=== PATIENT | female | born 1965 | race Caucasian/White ===

== ENCOUNTER 2020-06-18 19:36 | Observation (INO) | payer SELFPAY ==
[~2020-06-18] VITALS: Ht 162.6 cm; Wt 114.0 kg
[2020-06-18 20:07] LABS: BASOPHILS ABSOLUTE AUTO 0.05 K/mm3 (0.00-0.23); BASOPHILS PERCENT AUTO 1 % (0-2); EOSINOPHILS ABSOLUTE AUTO 0.11 K/mm3 (0.00-0.68); EOSINOPHILS PERCENT AUTO 1 % (0-6); Hematocrit 41.4 % (33.0-51.0); Hemoglobin 13.2 g/dL (11.5-16.0); IMMATURE GRAN ABSOLUTE AUTO 0.01 K/mm3 (0.00-0.10); IMMATURE GRAN PERCENT AUTO 0 % (0-1); LYMPHOCYTES PERCENT AUTO 41 % (21-46); MONOCYTES PERCENT AUTO 6 % (4-13); Mean Corpuscular HGB 28.6 pg (26.0-34.0); Mean Corpuscular HGB Conc 31.9 g/dL (31.5-36.5); Mean Corpuscular Volume 90 fL (80-100); Mean Platelet Volume 11.7 fL (9.1-12.4); NEUTROPHILS ABSOLUTE AUTO 4.18 K/mm3 (1.96-9.15); NEUTROPHILS PERCENT AUTO 51 % (41-73); Platelet Count 266 K/mm3 (150-400); RDW Coefficient Variation 13.6 % (11.7-14.2); RDW Standard Deviation 44.8 fL (35.1-46.3); Red Blood Cell Count 4.62 M/mm3 (3.80-5.20); White Blood Cell Count 8.25 K/mm3 (4.00-11.30)
[2020-06-18 20:26] LABS: Alanine Aminotransfer (ALT/SGP 29 U/L (12-78); Albumin, Blood 3.9 g/dL (3.4-5.0); Alk Phos 105 U/L (50-136); Anion Gap 6 mmol/L (6-16); Aspartate Aminotrans (AST/SGOT 22 U/L (12-37); Bilirubin, Total 0.4 mg/dL (0.1-1.0); Blood Urea Nitrogen 13 mg/dL (8-24); CO2, Blood 25 mmol/L (21-32); Calcium, Blood 9.4 mg/dL (8.5-10.1); Chloride, Blood 108 mmol/L (98-108); Creatinine, Blood 0.72 mg/dL (0.40-1.00); Globulin, Blood 3.8 g/dL (2.2-4.0); Glomerular Filtration Rate >60 (60-); Glucose, Blood 101 mg/dL (70-99); Potassium, Blood 3.8 mmol/L (3.5-5.5); Sodium, Blood 139 mmol/L (136-145); Total Protein, Blood 7.7 g/dL (6.4-8.2)
[2020-06-18] MEDS ORDERED: BENADRYL25 MG PO (23:41)
[2020-06-18] MEDS ORDERED: Acetaminophen650 M1 PO (23:41)
[2020-06-18] MEDS ORDERED: OMEP20ER PO (23:41)
[2020-06-18] MEDS ORDERED: PSEU120ER PO (23:42)
[2020-06-18] MEDS ORDERED: IBU600 M1 PO (23:44)
[2020-06-19 00:33] LABS: Source, Urine Clean Catch
[2020-06-19 00:40] LABS: Appearance, Urine Clear (Clear); Bilirubin, Urine Neg (Neg); Blood, Urine Neg (Neg); Color, Urine Yellow (P-Yellow); Glucose Qualitative, Urine Neg (Neg); Ketones, Urine Neg (Neg); Leukocyte Esterase, Urine 1+ (Neg); Nitrite, Urine Neg (Neg); Protein, Urine Neg (Neg); Urobilinogen, Urine NORM (Normal)
[2020-06-19 01:22] LABS: Bacteria Few /hpf; Red Blood Cells, Urine Not Seen /hpf (0-2); Squamous Epithelial Cells Rare /hpf (Few); White Blood Cells, Urine 0-2 /hpf (0-5)
[2020-06-19 06:21] LABS: BASOPHILS ABSOLUTE AUTO 0.05 K/mm3 (0.00-0.23); BASOPHILS PERCENT AUTO 1 % (0-2); EOSINOPHILS ABSOLUTE AUTO 0.11 K/mm3 (0.00-0.68); EOSINOPHILS PERCENT AUTO 2 % (0-6); Hematocrit 40.2 % (33.0-51.0); Hemoglobin 12.6 g/dL (11.5-16.0); IMMATURE GRAN ABSOLUTE AUTO 0.01 K/mm3 (0.00-0.10); IMMATURE GRAN PERCENT AUTO 0 % (0-1); LYMPHOCYTES ABSOLUTE AUTO 2.23 K/mm3 (0.84-5.20); LYMPHOCYTES PERCENT AUTO 33 % (21-46); MONOCYTES ABSOLUTE AUTO 0.44 K/mm3 (0.16-1.47); MONOCYTES PERCENT AUTO 7 % (4-13); Mean Corpuscular HGB 28.3 pg (26.0-34.0); Mean Corpuscular HGB Conc 31.3 g/dL (31.5-36.5); Mean Corpuscular Volume 90 fL (80-100); Mean Platelet Volume 12.2 fL (9.1-12.4); NEUTROPHILS ABSOLUTE AUTO 3.96 K/mm3 (1.96-9.15); NEUTROPHILS PERCENT AUTO 58 % (41-73); Platelet Count 233 K/mm3 (150-400); RDW Coefficient Variation 13.7 % (11.7-14.2); RDW Standard Deviation 45.6 fL (35.1-46.3); Red Blood Cell Count 4.45 M/mm3 (3.80-5.20)
--- NOTE | 2020-06-19 06:37 | NUR ---
SHIFT SUMMARY PT ARRIVED TO UNIT FROM ED VIA STRETCHER @ 3159. PT TRANSFERRED FROM STRETCHER TO STANDING SCALE SBA WITH CANE. THEN FROM SCALE TO BED. A&O X4. CALLS APPRPOPRIATELY. GAIT IS STEADY. MEDICATED X1 FOR COMPLAINTS OF BODY ACHES. NO ACUTE CHANGES THIS SHIFT. NO OTHER COMPLAINT. WILL CONTINUE TO MONITOR UNTIL REPORT GIVEN TO DAY RN.
[2020-06-19 06:43] LABS: Anion Gap 6 mmol/L (6-16); Blood Urea Nitrogen 15 mg/dL (8-24); Bun/Creatinine Ratio 21.3 (12.0-20.0); CHOL/HDL RATIO 3.4; CO2, Blood 24 mmol/L (21-32); Calcium, Blood 9.2 mg/dL (8.5-10.1); Chloride, Blood 110 mmol/L (98-108); Cholesterol 155 mg/dL (50-200); Glomerular Filtration Rate >60 (60-); Glucose, Blood 105 mg/dL (70-99); HDL Cholesterol 46 mg/dL (>39); LDL/HDL RATIO 1.7; Low Density Lipoprotein Chol 78 mg/dL (0-110); Potassium, Blood 3.8 mmol/L (3.5-5.5); Sodium, Blood 140 mmol/L (136-145); Thyroid Stimulating Hormone 0.876 uIU/mL (0.360-4.800); Triglycerides 155 mg/dL (30-160); Very Low Density Lipoprot Chol 31 mg/dL (6-32)
--- NOTE | 2020-06-19 11:48 | NUR ---
Echocardiogram using 9.0ml of agitated saline contrast performed.
--- NOTE | 2020-06-19 12:46 | NUR ---
AND HIS RESIDENT CANDI ROUNDED. LOOKING AT OTHER ALTERNATIVES TO A STROKE. SOME ORDERS RECEIVED.
--- NOTE | 2020-06-19 15:36 | NUR ---
SHE TOOK A NAP. CAROTID US DONE. TELE DC'D. NOW SIPPING ON SOME HERBAL TEA.
--- NOTE | 2020-06-19 17:26 | NUR ---
SHE HAS HAD SEVERAL TESTS TODAY. CTA HEAD AND NECK, ECHO, AND CAROTID US ALL DONE. IS THINKING MAYBE MS, NOT A STROKE. EXTRA LABS DONE AND PT EVAL ALSO DONE. SHE IS INDEPENDENTLY AMBULATORY IN THE ROOM WITH HER CANE. SHE WALKED THE STRATTON WITH GAITBELT, CANE AND SBA. HER L ARM AND LEG ARE WEAK. SHE HAS N/T IN THE LH AND L LEG AND FOOT. SHE HAD A H/A EARLIER TODAY AND PAIN ACROSS HER SHOULDERS AND BASE OF NECK. TYLENOL, KPAD AND A NAP HELPED. SHE HAS BEEN ON HER PHONE A LOT TODAY WITH FAMILY AND FRIENDS. SHE ALSO SPOKE WITH THE AUTO PARTS COUNTER PERSON ABOUT FUTURE NEEDS. NO NEURO CHANGES THIS SHIFT.
--- NOTE | 2020-06-20 05:21 | NUR ---
SHIFT SUMMARY PT HAS RESTED MOST OF THE NIGHT. PT COMPLAINS OF BACK AND NECK PAIN, SHE FINDS RELIEF WITH A HEATING PAD. MEDICATED WITH TYLENOL PRN. PT HAS BEEN INDEPENDENT IN THE ROOM. VITALS ARE STABLE, NO ACUTE CHANGES IN ASSESSMENT. BED IN LOWEST POSITION, CALL LIGHT WITHIN REACH.
--- NOTE | 2020-06-20 07:41 | NUR ---
pt neuro check h/a neck pain pos pt has equal pooling operator and dorsal plantar flex pt puerla pt stated she did not sleep well last night also asking for her asthama meds stated she has some chest tightness
--- NOTE | 2020-06-20 09:20 | NUR ---
pt working with physical therapy
--- NOTE | 2020-06-20 10:30 | NUR ---
pt resting req the door closed
--- NOTE | 2020-06-20 11:17 | NUR ---
DR SHEIKH BY TO SEE PT
[2020-06-20] MEDS ORDERED: ATOR80 PO (12:28)
[2020-06-20] MEDS ORDERED: ASPIR 8181 M1 PO (12:28)
[2020-06-20] MEDS ORDERED: LOSARTAN POTASS25 M1 PO (12:29)
[2020-06-20] MEDS ORDERED: Nicoderm Cq1 EAC1 TOP (12:30)
--- NOTE | 2020-06-20 12:50 | NUR ---
DISCHARGE INSTRUCTIONS REVIEWED WITH PT VERBALIZED RX FAXED TO [facility] PT'S FAMILY PICKING HER UP NO ACUTE CHANGES PT TO HAVE WC ESCORT TO CAR WHEN ARRIVES
== END 2020-06-20 12:53 | disposition home or self-care (01) ==
LOC: ER 19:36 → MEDS 19:37 → ENPENDDIS 06-20 12:27 → MEDS 06-20 12:53
PROVIDERS: Physician Assistant; Student in an Organized Health Care Education/Training Program; ADMIT Internal Medicine
DX: G43.019 Migraine without aura, intractable, without status migrainosus (principal); G35 Multiple sclerosis; K21.9 Gastro-esophageal reflux disease without esophagitis; F17.210 Nicotine dependence, cigarettes, uncomplicated; I10 Essential (primary) hypertension; I25.10 Atherosclerotic heart disease of native coronary artery without angina pectoris; I25.2 Old myocardial infarction; Z86.73 Personal history of transient ischemic attack (TIA), and cerebral infarction without residual deficits; Z88.0 Allergy status to penicillin; Z88.5 Allergy status to narcotic agent; Z88.8 Allergy status to other drugs, medicaments and biological substances; Z88.1 Allergy status to other antibiotic agents; Z95.5 Presence of coronary angioplasty implant and graft; Z79.899 Other long term (current) drug therapy
CPT/HCPCS: 36415; 70450; 70496; 70498; 80048; 80053; 80061; 81001; 83036; 84443; 85025; 85651; 86140; 87086; 87147; 93005; 93010; 93306; 93880; 96372; 97116; 97161; 99285-25; A9270; A9270-GY; C9113; G0378; J1650; Q9967

== ENCOUNTER → 2020-07-30 | Outpatient (CLI) | payer OTHER ==
[~2020-07-30] MED LIST: ASPIR 8181 M1 PO; ATOR80 PO; Acetaminophen650 M1 PO; BENADRYL25 MG PO; IBU600 M1 PO; LOSARTAN POTASS25 M1 PO; Nicoderm Cq1 EAC1 TOP; OMEP20ER PO; PSEU120ER PO
[2020-08-01 16:01] LABS: CORNONAVIRUS (COVID19) CSH-NRL Negative (Negative)
== END | disposition home or self-care (01) ==
LOC: LAB SHORT 16:25
PROVIDERS: Physician Assistant
DX: R05 Cough (principal); Z20.828 Contact with and (suspected) exposure to other viral communicable diseases
CPT/HCPCS: U0003

== ENCOUNTER 2020-11-13 10:32 | Inpatient (IN) | payer OTHER ==
[~2020-11-13] VITALS: Ht 165.1 cm; Wt 99.3 kg
[~2020-11-13 10:32] MED LIST changes: +ATOR40TA PO; -ATOR80 PO
[2020-11-13 11:14] LABS: BASOPHILS ABSOLUTE AUTO 0.02 K/mm3 (0.00-0.23); BASOPHILS PERCENT AUTO 0 % (0-2); EOSINOPHILS ABSOLUTE AUTO 0.01 K/mm3 (0.00-0.68); EOSINOPHILS PERCENT AUTO 0 % (0-6); Hematocrit 41.1 % (33.0-51.0); Hemoglobin 13.4 g/dL (11.5-16.0); IMMATURE GRAN ABSOLUTE AUTO 0.04 K/mm3 (0.00-0.10); IMMATURE GRAN PERCENT AUTO 0 % (0-1); LYMPHOCYTES ABSOLUTE AUTO 0.95 K/mm3 (0.84-5.20); LYMPHOCYTES PERCENT AUTO 11 % (21-46); MONOCYTES ABSOLUTE AUTO 0.29 K/mm3 (0.16-1.47); MONOCYTES PERCENT AUTO 3 % (4-13); Mean Corpuscular HGB 29.9 pg (26.0-34.0); Mean Corpuscular HGB Conc 32.6 g/dL (31.5-36.5); Mean Corpuscular Volume 92 fL (80-100); Mean Platelet Volume 11.3 fL (9.1-12.4); NEUTROPHILS PERCENT AUTO 85 % (41-73); Platelet Count 205 K/mm3 (150-400); RDW Coefficient Variation 13.2 % (11.7-14.2); RDW Standard Deviation 45.1 fL (35.1-46.3); Red Blood Cell Count 4.48 M/mm3 (3.80-5.20); White Blood Cell Count 8.91 K/mm3 (4.00-11.30)
[2020-11-13 11:15] LABS: PCO2 Arterial 37.7 mmHg (35-45); PO2 Arterial 63.6 mmHg (80-100); pH Blood Arterial 7.42 (7.35-7.45)
[2020-11-13 11:32] LABS: Alanine Aminotransfer (ALT/SGP 26 U/L (12-78); Albumin, Blood 3.6 g/dL (3.4-5.0); Albumin/Globulin Ratio 0.9 (0.8-1.8); Alk Phos 98 U/L (50-136); Anion Gap 5 mmol/L (6-16); Aspartate Aminotrans (AST/SGOT 19 U/L (12-37); Bilirubin, Total 0.4 mg/dL (0.1-1.0); Blood Urea Nitrogen 7 mg/dL (8-24); Bun/Creatinine Ratio 12.4 (12.0-20.0); CO2, Blood 25 mmol/L (21-32); Calcium, Blood 8.5 mg/dL (8.5-10.1); Chloride, Blood 103 mmol/L (98-108); Creatinine, Blood 0.56 mg/dL (0.40-1.00); Ethanol (Alcohol), Blood, Med <3 mg/dL; Free Thyroxine 1.22 ng/dL (0.70-1.60); Globulin, Blood 3.8 g/dL (2.2-4.0); Glomerular Filtration Rate >60 (60-); Glucose, Blood 112 mg/dL (70-99); Potassium, Blood 3.5 mmol/L (3.5-5.5); Sodium, Blood 133 mmol/L (136-145); Total Protein, Blood 7.4 g/dL (6.4-8.2)
[2020-11-13 11:35] LABS: Acetaminophen, Random <2.0 ug/mL (10.0-30.0)
[2020-11-13 11:44] LABS: U Amphetamine Screen Not Detected; U Barbituate Screen Not Detected; U Benzodiazapine Screen DETECTED; U Buprenorphine Screen Not Detected; U Cannabinoids Screen DETECTED; U Cocaine Screen Not Detected; U Methadone Screen Not Detected; U Methamphetamine Screen Not Detected; U Opiates Screen Not Detected; U Oxycodone Screen Not Detected; U Phencyclidine Screen Not Detected; U Propoxyphene Screen Not Detected
[2020-11-13] MEDS ORDERED: BENZONATATE100 MG PO (12:42)
[2020-11-13] MEDS ORDERED: CYCL10 PO (12:43)
[2020-11-13 14:57] LABS: Influenza A, PCR NEGATIVE (NEGATIVE); Influenza B, PCR NEGATIVE (NEGATIVE); Resp Syncytial Virus, PCR NEGATIVE (NEGATIVE); SARS-Cov-2 (COVID-19) PCR, MMC NEGATIVE (NEGATIVE)
--- NOTE | 2020-11-13 17:00 | NUR ---
ASSUMED CARE/ADMISSION PT ARRIVED TO ICU 02 VIA STRETCHER AT 1645 WITH A 1:1 SITTER. PT SLEEPY, LETHARGIC, SOMNOLENT - AROUSING TO VERBAL STIMULI BUT NOT MAINTAINING HER ATTENTION SPAN FOR TOO LONG. ORIENTED TO SELF, SURROUNDINGS, YEAR, AND FAMILY - FOLLOWING SOME DIRECTIONS, BUT MAKING FEW CONFUSING STATEMENTS BEFORE FALLING ASLEEP. SHE WILL FALL ASLEEP MID SENTENCE, OR WHILE YOU ARE ASKING HER A QUESTION. UNABLE TO DETERMINE CURRENT SUICIDE IDEATIONS, PT REMAINS ON HIGH RISK. ROOM WAS MITIGATED AT 1615 BY THIS RN. UPON ARRIVAL TO UNIT, SHE IS ON ROOM AIR, STABLE VITALS (MAP > 65, SPO2 > 94%, HR 60-70s, 106/64). BED LOW AND LOCKED.
--- NOTE | 2020-11-13 17:22 | NUR ---
SUICIDE ASSESSMENT PT IS VERY SOMNOLENT, AND IS HAVING DIFFICULTY STAYING AWAKE AND TALKING. WHEN TALKING FOR BRIEF PERIODS OF TIME SHE WILL TRAIL OFF MID SENTENCE AND FALL ASLEEP, AND OFTEN WILL JUST MUMBLE INCOMPREHENSIBLY. SHE WAS ABLE TO TELL ME THAT SHE IS AT [facility], THE YEAR, AND HER NAME - BUT WAS UNABLE TO GET ANY MORE INFORMATION FROM HER. PT CURRENTLY FAST ASLEEP. WILL CONTINUE TO MONITOR. PT HAS A 1:1 SITTER PRESENT.
--- NOTE | 2020-11-13 18:08 | NUR ---
FACE SHEET TUBED DOWN TO THE ER FOR SHIRA CONSULT.
--- NOTE | 2020-11-13 19:35 | NUR ---
ASSUMED CARE RECEIVED BEDSIDE REPORT FROM ANNIE HARRIS; PT SLEEPING IN BED, LETHARGIC; VSS; O2 SATS >93 ON RA; GILMORE IN PLACE, PATENT & DRAINING; 1:1 SITTER AND CAMERA ON FOR SAFETY; NO DISTRESS NOTED; CALL LIGHT IN REACH; BED IN LOWEST POSITION
--- NOTE | 2020-11-13 20:30 | NUR ---
UPDATE PT ARROUSED TO VERBAL; ABLE TO STATE SHE IS IN THE HOSPITAL AND FOLLOWING SOME DIRECTIONS; ROLLED SIDE TO SIDE, SQUEEZED HANDS, STRAIGHTENED LEGS AND FOLLOWED PEN LIGHT MINIMALLY; WOULD NOT ANSWER SI QUESTIONS; FALLS ASLEEP QUICKLY IN BETWEEN QUESTIONS; 1:1 SITTER; CALL LIGHT IN REACH; BED IN LOWEST POSITION
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
--- NOTE | 2020-11-13 22:46 | NUR ---
UPDATE SPOKE W/ MARINA W/ POISON CONTROL; GAVE RECOMMENDATIONS FOR MONITORING MAG AND POTASSIUM; NOTIFIED RYLIE CHRIS; NEW ORDERS GIVEN, REFER TO EMAR.
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
[2020-11-14 03:38] LABS: BASOPHILS ABSOLUTE AUTO 0.02 K/mm3 (0.00-0.23); BASOPHILS PERCENT AUTO 0 % (0-2); EOSINOPHILS ABSOLUTE AUTO 0.05 K/mm3 (0.00-0.68); EOSINOPHILS PERCENT AUTO 1 % (0-6); Hemoglobin 12.5 g/dL (11.5-16.0); IMMATURE GRAN ABSOLUTE AUTO 0.02 K/mm3 (0.00-0.10); IMMATURE GRAN PERCENT AUTO 0 % (0-1); LYMPHOCYTES ABSOLUTE AUTO 1.91 K/mm3 (0.84-5.20); LYMPHOCYTES PERCENT AUTO 21 % (21-46); MONOCYTES ABSOLUTE AUTO 0.52 K/mm3 (0.16-1.47); MONOCYTES PERCENT AUTO 6 % (4-13); Mean Corpuscular HGB Conc 32.9 g/dL (31.5-36.5); Mean Corpuscular Volume 91 fL (80-100); Mean Platelet Volume 11.2 fL (9.1-12.4); NEUTROPHILS ABSOLUTE AUTO 6.51 K/mm3 (1.96-9.15); NEUTROPHILS PERCENT AUTO 72 % (41-73); Platelet Count 198 K/mm3 (150-400); RDW Coefficient Variation 13.2 % (11.7-14.2); RDW Standard Deviation 44.8 fL (35.1-46.3); Red Blood Cell Count 4.17 M/mm3 (3.80-5.20); White Blood Cell Count 9.03 K/mm3 (4.00-11.30)
[2020-11-14 03:54] LABS: Alanine Aminotransfer (ALT/SGP 23 U/L (12-78); Albumin, Blood 3.1 g/dL (3.4-5.0); Alk Phos 85 U/L (50-136); Anion Gap 2 mmol/L (6-16); Aspartate Aminotrans (AST/SGOT 27 U/L (12-37); Bilirubin, Total 0.3 mg/dL (0.1-1.0); Blood Urea Nitrogen 8 mg/dL (8-24); Bun/Creatinine Ratio 13.2 (12.0-20.0); CO2, Blood 26 mmol/L (21-32); Calcium, Blood 8.7 mg/dL (8.5-10.1); Chloride, Blood 113 mmol/L (98-108); Globulin, Blood 3.2 g/dL (2.2-4.0); Glomerular Filtration Rate >60 (60-); Glucose, Blood 79 mg/dL (70-99); Magnesium, Blood 2.2 mg/dL (1.6-2.4); Potassium, Blood 4.3 mmol/L (3.5-5.5); Sodium, Blood 141 mmol/L (136-145); Total Protein, Blood 6.3 g/dL (6.4-8.2)
--- NOTE | 2020-11-14 04:54 | NUR ---
UPDATE NOTIFIED OF CONSULT W/ POISON CONTROL AND REPEAT EKG, QTC 489; NO NEW ORDERS GIVEN
--- NOTE | 2020-11-14 06:19 | NUR ---
SHIFT SUMMARY PT A&O X 3-4; BECOMES FRUSTRATED W/ BEING IN HOSPTIAL AT TIMES; STATES SHE WISHED NO ONE WOULD HAVE FOUND HER, "I KNEW I SHOULDN'T HAVE DONE IT ON THEIR PROPERTY" WHEN SPEAKING OF SI ATTEMPT ON HER MOTHER'S PROPERTY; VSS; DENIES CHEST PAIN; NSR NOTED ON MONITOR; O2 SATS >93 ON RA W/ RR 16-19; GILMORE PATENT & DRAINING YELLOW; NS GTT @ 75 ML/HR TO R HAND IV; 1:1 SITTER AND CAMERA ON FOR DURATION OF SHIFT; SEIZURE PADS IN PLACE; SPOKE W/ POISON CONTROL 2X; PT CURRENTLY SLEEPING; NO DISTRESS NOTED; CALL LIGHT IN REACH; BED IN LOWEST POSITION; WILL CONTINUE TO MONITOR CLOSELY UNTIL HAND OFF TO DAY SHIFT RN.
--- NOTE | 2020-11-14 07:15 | NUR ---
PT RECEIVED FROM ANNIE VALIENTE. STEVE IS AWAKE AND ANSWERING QUESTIONS, HAS A 1:1 SITTER OBSERVING. VITALS ARE STABLE, SHE IS ASKING FOR WATER. COUGH, NOT NEW, OCC.PRODUCTIVE,LUNGS WITH EXP.WHEEZE,ABDOMEN SOFT,TENDER TO PALPATION,GILMORE DRAINING YELLOW,BRUISES OVER LOWER EXTREMITIES, PATIENT STATES SHE FELL ON THE STEPS AT HOME. PT BEGINS CRYING,AGITATED,SAYING WHY DID "YOU" SAVE ME? I DON'T WANT TO BE HERE! SOBS,WAILS, CAN CALM WITH TALKING.
--- NOTE | 2020-11-14 07:30 | NUR ---
PT DEMANDING TO STAND AT THE BEDSIDE, ANGRY,AGITATED. TRYING TO CALM HER WITH CONVERSATION. STANDS AT BEDSIDE, SHE DOES SOME STRETCHES. CALMS DOWN AND RETURNS TO BED.
--- NOTE | 2020-11-14 08:00 | NUR ---
AND IN TO SEE PATIENT, SHE IS ANGRY AND AGITATED AT THIS TIME, ANSWERING FRUSTRATEDLY TO . CALMS WITH CONVERSATION AFTER THEY HAVE GONE. HAS RATIONAL CONVERSATION. IV CONTINUES INFUSING AT 75ML/HR IN RIGHT THUMB IV, RIGHT FOOT WITH SALINE LOCK. GILMORE CONT.DRAINING TO GRAVITY. SITTER PRESENT.
--- NOTE | 2020-11-14 09:00 | NUR ---
RESTING,APPEARS TO BE SLEEPING.
--- NOTE | 2020-11-14 10:30 | NUR ---
COUNSELOR FROM MENTAL HEALTH HERE TO TALK WITH PATIENT. PATIENT VISITING WITH HER THEN BEGINS SHOUTING OUT THAT HER ARM IS HURTING, TAKE OUT THE IV, TAKE OUT THE IV. IV STOPPED, ARM ASSESSED, NO REDNESS,SWELLING,OR DRAINAGE. IV PUT TO FOOT SALINE LOCK. PT BEGINS SCREAMING, STOP THE POTASSIUM! STOP THE POTASSIUM! I AGAIN STOPPED THE IV AND ASSESSED THE AREA, NO REDNESS,SWELLING OR DRAINAGE. IV DISCONNECTED. PT ASKING FOR GILMORE OUT WELL. CALL TO WHO WAS AT THE TIME PUTTING IN ORDERS TO DC THE GILMORE AND THE FLUIDS.
--- NOTE | 2020-11-14 11:00 | NUR ---
PT'S RIGHT THUMB IV REMOVED AND THE GILMORE CATHETER REMOVED. PATIENT EXPRESSES THANKFULNESS AND APPRECIATION. SHE STATES THAT SHE REALLY DOESN'T WANT TO , SHE IS JUST FED UP WITH THE TREATMENT HER MOTHER GIVES HER.
--- NOTE | 2020-11-14 16:40 | NUR ---
PT ARRIVED TO ROOM BY W/C FROM ICU. SETTLED IN TO ROOM AND ORIENTED TO SPACE [employer]LL POLICIES REGARDING SUICIDE RISK PRERCAUTIONS TAKEN. ORIENTED AND APPROPRIATE ON ARRIVAL.
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
--- NOTE | 2020-11-14 22:14 | NUR ---
PT. DENIES SI AT THIS TIME. STATES CONCERN THAT SHE HAS NO WHERE TO GO AND MOM ASKED HER TO LEAVE PARENTS PROPERTY. PT. REMAINS ON MODERATE SI. RESTING QUIETLY IN BED, NO APPARENT DISTRESS NOTED. ON CAMERA, WILL CONT TO MONITOR.
[2020-11-15] MEDS ORDERED: NAPR500 PO (03:04)
[2020-11-15] MEDS ORDERED: ALBU90OI INH (03:05)
--- NOTE | 2020-11-15 06:00 | NUR ---
SHIFT SUMMARY- PT. A&O, INDEPENDENT IN THE ROOM. DENIED SI THIS SHIFT. STATED DID NOT WANT TO COMMIT SUICIDE ANYMORE, BUT CONCERNED AND TEARFUL ABOUT FINDING A PLACE TO LIVE. PT. SLEPT FOR A FEW HRS DURING THE NIGHT AND THEN AWAKE THE REST OF THE SHIFT. REQUESTING LOTS TO DRINK; HAD WATER, COFFEE, AND TEA SEVERAL TIMES. C/O BACK AND HIP PAIN. MEDICATED WITH TYLENOL PER EMAR, PT. REPORTED NO RELIEF. STATED TAKES 4 500MG OF TYLENOL AT HOME AND EVEN THAT DOES NOT PROVIDE GOOD RELIEF. THIS AM PT. REPORTED CHEST PRESSURE THAT COMES AND GOES WHICH FELT LIKE REFLUX. PT. W/HX OF GERD AND MS, VSS. NOTIFIED HOSPITALIST DR. PRUITT, INSTRUCTED TO MEDICATE WITH TUMS AND INFORM PHYSICIAN IF NO IMPROVEMENT. PT. MEDICATED PER ORDER, INSTRUCTED TO NOTIFY THIS NURSE IF NO IMPROVEMENT OR SX'S WORSEN. PT. VERBALIZED UNDERSTANDING. PT. RESTING IN BED QUIETLY AT THIS TIME, NO APPARENT DISTRESS NOTED. CALL LIGHT WITHIN REACH, SIDE RAILS UPX2, AND ON CAMERA. WILL CONT TO MONITOR.
--- NOTE | 2020-11-15 08:31 | NUR ---
DR. TILLEYUF AWARE OF CURRENT SI RISK. JUST SPOKE WITH DR. CABRERA AND WAS HEARD STATING SHE MAY KILL HER MOTHER IF SHE IS NEARBY AGAIN.
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
--- NOTE | 2020-11-15 18:29 | NUR ---
SHIFT SUMMARY PT WAS ON MOD SI UNTIL SEEN BY DR. SILVA AND NO LONGER SI. HAS BEEN REPORTING CONSTIPATION SINCE THIS MORNING. PRUNE JUICE GIVEN AND PT REPORTED STOMACH CRAMPING MOST OF SHIFT AND THEN ASKED FOR AN ENEMA. GIVEN AND PT REPORTED LARGE BM WITHIN 15 MINUTES OF RECEIVING. NO OTHER CHANGE TODAY.
--- NOTE | 2020-11-16 05:53 | NUR ---
SHIFT SUMMARY- SI DISCONTINUED. PT. A&O, INDPENDENT IN ROOM ALSO AMBULATING IN HALLWAY. TOLERATING WELL. C/O BACK AND HIP PAIN THIS SHIFT, MEDICATED PER EMAR. APPEARED TO HAVE GOOD EFFECT, RESTED QUIETLY T/O THE NIGHT. NO APPARENT DISTRESS NOTED. VSS. CALL LIGHT WITHIN REACH. WILL CONT TO MONITOR.
[2020-11-16] MEDS ORDERED: BUSP10 PO (11:07)
--- NOTE | 2020-11-16 11:38 | NUR ---
DISCHARGE NOTE PT IS AOX4. PT IV REMOVED FROM FOOT BY THIS RN. THIS RN REVIEWED PT MEDICATIONS AND DC INSTRUCTION WITH PT WHO VERBALIZED AN UNDERSTANDING. THIS RN RETRIEVED PT MEDICATIONS FROM PHARMACY AND PT PLACED MEDICATIONS IN HER BELONGINGS BAG. PT DRESSED SELF IN HOME CLOTHING. PT BELONGINGS GATHERED AND PRESENT WITH PT UPON DC. THIS RN WALKED PT TO ER ENTRANCE WHERE PT ENTERED TAXI RIDE AT APPROXIMATELY 1135 FOR DC.
== END 2020-11-16 11:25 | disposition home or self-care (01) | DRG 917 ==
LOC: ER 10:32 → ERHOLD 13:17 → ICUE 13:17 → MEDS 11-14 16:31 → ENPENDDIS 11-16 10:05 → MEDS 11-16 11:25
PROVIDERS: Emergency Medicine; Nurse Practitioner Acute Care; ADMIT Hospitalist
DX: T48.1X2A Poisoning by skeletal muscle relaxants [neuromuscular blocking agents], intentional self-harm, initial encounter (principal); G92 Toxic encephalopathy; Y92.9 Unspecified place or not applicable; Z79.82 Long term (current) use of aspirin; I25.2 Old myocardial infarction; K21.9 Gastro-esophageal reflux disease without esophagitis; F17.210 Nicotine dependence, cigarettes, uncomplicated; F20.9 Schizophrenia, unspecified; F32.9 Major depressive disorder, single episode, unspecified; I10 Essential (primary) hypertension; I25.10 Atherosclerotic heart disease of native coronary artery without angina pectoris; T46.5X2A Poisoning by other antihypertensive drugs, intentional self-harm, initial encounter; G89.29 Other chronic pain; M54.9 Dorsalgia, unspecified; M25.559 Pain in unspecified hip
CPT/HCPCS: 0241U; 36415; 36600; 51702; 70450; 71045; 80053; 81025; 82550; 82803; 83735; 84439; 84443; 85025; 93005; 93010; 94640; 97161; 99285-25; A9270; G0480; J1650; J3480; J7030

== ENCOUNTER 2021-02-26 15:40 | Observation (INO) | payer OTHER ==
[~2021-02-26] VITALS: Ht 160 cm; Wt 83.9 kg
[~2021-02-26 15:40] MED LIST changes: +ALBU90OI INH; +BENZONATATE100 MG PO; +BUSP10 PO; +CYCL10 PO; +NAPR500 PO
[2021-02-26 17:10] LABS: Source, Urine Clean Catch
[2021-02-26 17:18] LABS: Bilirubin, Urine Neg (Neg); Blood, Urine Neg (Neg); Glucose Qualitative, Urine Neg (Neg); Ketones, Urine Neg (Neg); Leukocyte Esterase, Urine Neg (Neg); Nitrite, Urine Neg (Neg); Protein, Urine Neg (Neg); Urobilinogen, Urine NORM (Normal)
[2021-02-26 17:27] LABS: Appearance, Urine Clear (Clear); Color, Urine Pale Yellow (P-Yellow)
[2021-02-26 18:26] LABS: BASOPHILS ABSOLUTE AUTO 0.04 K/mm3 (0.00-0.23); BASOPHILS PERCENT AUTO 0 % (0-2); EOSINOPHILS ABSOLUTE AUTO 0.07 K/mm3 (0.00-0.68); EOSINOPHILS PERCENT AUTO 1 % (0-6); Hematocrit 37.7 % (33.0-51.0); Hemoglobin 12.4 g/dL (11.5-16.0); IMMATURE GRAN ABSOLUTE AUTO 0.04 K/mm3 (0.00-0.10); IMMATURE GRAN PERCENT AUTO 0 % (0-1); LYMPHOCYTES ABSOLUTE AUTO 3.65 K/mm3 (0.84-5.20); LYMPHOCYTES PERCENT AUTO 31 % (21-46); MONOCYTES ABSOLUTE AUTO 0.65 K/mm3 (0.16-1.47); MONOCYTES PERCENT AUTO 5 % (4-13); Mean Corpuscular HGB 30.3 pg (26.0-34.0); Mean Corpuscular HGB Conc 32.9 g/dL (31.5-36.5); Mean Corpuscular Volume 92 fL (80-100); Mean Platelet Volume 10.4 fL (9.1-12.4); NEUTROPHILS ABSOLUTE AUTO 7.48 K/mm3 (1.96-9.15); NEUTROPHILS PERCENT AUTO 63 % (41-73); Platelet Count 320 K/mm3 (150-400); RDW Coefficient Variation 14.2 % (11.7-14.2); RDW Standard Deviation 48.4 fL (35.1-46.3); Red Blood Cell Count 4.09 M/mm3 (3.80-5.20); White Blood Cell Count 11.93 K/mm3 (4.00-11.30)
[2021-02-26 18:48] LABS: Ethanol (Alcohol), Blood, Med <3 mg/dL; Salicylate 4.2 mg/dL (2.8-20.0)
[2021-02-26 18:56] LABS: Alanine Aminotransfer (ALT/SGP 23 U/L (12-78); Albumin, Blood 3.6 g/dL (3.4-5.0); Albumin/Globulin Ratio 0.9 (0.8-1.8); Alk Phos 95 U/L (50-136); Anion Gap 6 mmol/L (6-16); Aspartate Aminotrans (AST/SGOT 17 U/L (12-37); Bilirubin, Total 0.3 mg/dL (0.1-1.0); Blood Urea Nitrogen 9 mg/dL (8-24); Bun/Creatinine Ratio 12.6 (12.0-20.0); CO2, Blood 27 mmol/L (21-32); Calcium, Blood 9.6 mg/dL (8.5-10.1); Chloride, Blood 104 mmol/L (98-108); Creatinine, Blood 0.71 mg/dL (0.40-1.00); Globulin, Blood 3.9 g/dL (2.2-4.0); Glomerular Filtration Rate >60 (60-); Glucose, Blood 97 mg/dL (70-99); Potassium, Blood 3.6 mmol/L (3.5-5.5); Sodium, Blood 137 mmol/L (136-145); Total Protein, Blood 7.5 g/dL (6.4-8.2)
[2021-02-26 18:58] LABS: Acetaminophen, Random <2.0 ug/mL (10.0-30.0)
[2021-02-26 19:19] LABS: U Amphetamine Screen Not Detected; U Barbituate Screen Not Detected; U Benzodiazapine Screen Not Detected; U Buprenorphine Screen Not Detected; U Cannabinoids Screen Not Detected; U Cocaine Screen Not Detected; U Methadone Screen Not Detected; U Methamphetamine Screen Not Detected; U Opiates Screen Not Detected; U Oxycodone Screen Not Detected; U Phencyclidine Screen Not Detected; U Propoxyphene Screen Not Detected
[2021-02-26 21:44] LABS: SARS-Cov-2 (COVID-19) PCR, MMC NEGATIVE (NEGATIVE)
== END 2021-02-27 18:18 | disposition home or self-care (01) ==
LOC: ER 15:40 → EOR 15:41
PROVIDERS: Physician Assistant; ADMIT Emergency Medicine
DX: F32.9 Major depressive disorder, single episode, unspecified (principal); F41.9 Anxiety disorder, unspecified; F25.9 Schizoaffective disorder, unspecified; F17.200 Nicotine dependence, unspecified, uncomplicated; F19.11 Other psychoactive substance abuse, in remission; I10 Essential (primary) hypertension; K21.9 Gastro-esophageal reflux disease without esophagitis; I25.10 Atherosclerotic heart disease of native coronary artery without angina pectoris; I25.2 Old myocardial infarction; G35 Multiple sclerosis; Z88.1 Allergy status to other antibiotic agents; Z88.5 Allergy status to narcotic agent; Z88.0 Allergy status to penicillin; Z88.2 Allergy status to sulfonamides; Z88.8 Allergy status to other drugs, medicaments and biological substances; Z79.82 Long term (current) use of aspirin; Z79.1 Long term (current) use of non-steroidal anti-inflammatories (NSAID); Z86.73 Personal history of transient ischemic attack (TIA), and cerebral infarction without residual deficits; Z95.5 Presence of coronary angioplasty implant and graft; Z20.822 Contact with and (suspected) exposure to COVID-19
CPT/HCPCS: 36415; 80053; 81003; 85025; 93005; 93010; 99285; A9270; G0378; G0480; Q3014; U0004

== ENCOUNTER 2021-03-03 19:29 | Emergency (ER) | payer OTHER ==
[~2021-03-03] VITALS: Ht 160 cm; Wt 83.9 kg
[2021-03-03] MEDS ORDERED: OLAN5A MM (20:05)
[2021-03-03] MEDS ORDERED: BACL10 PO (20:06)
[2021-03-03 20:20] LABS: BASOPHILS ABSOLUTE AUTO 0.05 K/mm3 (0.00-0.23); BASOPHILS PERCENT AUTO 1 % (0-2); EOSINOPHILS ABSOLUTE AUTO 0.07 K/mm3 (0.00-0.68); EOSINOPHILS PERCENT AUTO 1 % (0-6); Hematocrit 33.7 % (33.0-51.0); Hemoglobin 11.3 g/dL (11.5-16.0); IMMATURE GRAN ABSOLUTE AUTO 0.02 K/mm3 (0.00-0.10); IMMATURE GRAN PERCENT AUTO 0 % (0-1); LYMPHOCYTES ABSOLUTE AUTO 3.96 K/mm3 (0.84-5.20); LYMPHOCYTES PERCENT AUTO 42 % (21-46); MONOCYTES ABSOLUTE AUTO 0.55 K/mm3 (0.16-1.47); MONOCYTES PERCENT AUTO 6 % (4-13); Mean Corpuscular HGB 30.5 pg (26.0-34.0); Mean Corpuscular HGB Conc 33.5 g/dL (31.5-36.5); Mean Corpuscular Volume 91 fL (80-100); Mean Platelet Volume 11.1 fL (9.1-12.4); NEUTROPHILS PERCENT AUTO 50 % (41-73); Platelet Count 270 K/mm3 (150-400); RDW Coefficient Variation 14.1 % (11.7-14.2); RDW Standard Deviation 46.7 fL (35.1-46.3); White Blood Cell Count 9.35 K/mm3 (4.00-11.30)
[2021-03-03 20:36] LABS: Alanine Aminotransfer (ALT/SGP 25 U/L (12-78); Albumin, Blood 3.4 g/dL (3.4-5.0); Alk Phos 82 U/L (50-136); Anion Gap 8 mmol/L (6-16); Aspartate Aminotrans (AST/SGOT 17 U/L (12-37); Bilirubin, Total 0.2 mg/dL (0.1-1.0); Blood Urea Nitrogen 8 mg/dL (8-24); Bun/Creatinine Ratio 11.1 (12.0-20.0); CO2, Blood 24 mmol/L (21-32); Calcium, Blood 9.1 mg/dL (8.5-10.1); Chloride, Blood 108 mmol/L (98-108); Creatinine, Blood 0.72 mg/dL (0.40-1.00); Globulin, Blood 3.5 g/dL (2.2-4.0); Glomerular Filtration Rate >60 (60-); Glucose, Blood 99 mg/dL (70-99); Potassium, Blood 3.2 mmol/L (3.5-5.5); Sodium, Blood 140 mmol/L (136-145); Total Protein, Blood 6.9 g/dL (6.4-8.2); Troponin I <0.015 ng/mL (0.000-0.040)
== END 2021-03-04 01:25 | disposition home or self-care (01) ==
LOC: ER 19:29
PROVIDERS: Emergency Medicine
DX: R10.9 Unspecified abdominal pain (principal); R07.9 Chest pain, unspecified; R06.02 Shortness of breath; I10 Essential (primary) hypertension; K21.9 Gastro-esophageal reflux disease without esophagitis; I25.2 Old myocardial infarction; F17.210 Nicotine dependence, cigarettes, uncomplicated; Z88.0 Allergy status to penicillin; Z88.2 Allergy status to sulfonamides; Z88.1 Allergy status to other antibiotic agents; Z88.5 Allergy status to narcotic agent; Z91.040 Latex allergy status; Z79.82 Long term (current) use of aspirin; Z79.899 Other long term (current) drug therapy
CPT/HCPCS: 71045; 74177; 80053; 83690; 84484; 85025; 93005; 93010; 96374-59; 99285-25; A9270; J3010; Q9967

== ENCOUNTER → 2021-04-23 | Outpatient (CLI) | payer OTHER ==
[~2021-04-23] MED LIST changes: +BACL10 PO; +OLAN5A MM
== END | disposition home or self-care (01) ==
LOC: LAB SHORT 17:45 → LAB 17:45
DX: L03.113 Cellulitis of right upper limb (principal)
CPT/HCPCS: 87070; 87075; 87077; 87186; 87205

== ENCOUNTER 2021-05-07 14:34 | Emergency (ER) | payer OTHER ==
[~2021-05-07] VITALS: Ht 160 cm; Wt 83.9 kg
[~2021-05-07 14:34] MED LIST changes: +BENZ100A PO; +BUPRENO-NALOX1 EACH SL; +CYCLOBENZAPRINE5 MG PO; +DOCU100 PO; +MIRALAX17 GM PO; +OLAN10 PO; +Prilosec10 M1 PO
[2021-05-07 15:55] LABS: BASOPHILS ABSOLUTE AUTO 0.07 K/mm3 (0.00-0.23); BASOPHILS PERCENT AUTO 1 % (0-2); EOSINOPHILS ABSOLUTE AUTO 0.13 K/mm3 (0.00-0.68); EOSINOPHILS PERCENT AUTO 1 % (0-6); Hematocrit 41.2 % (33.0-51.0); Hemoglobin 13.5 g/dL (11.5-16.0); IMMATURE GRAN ABSOLUTE AUTO 0.02 K/mm3 (0.00-0.10); IMMATURE GRAN PERCENT AUTO 0 % (0-1); LYMPHOCYTES ABSOLUTE AUTO 3.66 K/mm3 (0.84-5.20); LYMPHOCYTES PERCENT AUTO 38 % (21-46); MONOCYTES ABSOLUTE AUTO 0.54 K/mm3 (0.16-1.47); MONOCYTES PERCENT AUTO 6 % (4-13); Mean Corpuscular HGB 30.3 pg (26.0-34.0); Mean Corpuscular HGB Conc 32.8 g/dL (31.5-36.5); Mean Corpuscular Volume 93 fL (80-100); Mean Platelet Volume 10.5 fL (9.1-12.4); NEUTROPHILS ABSOLUTE AUTO 5.12 K/mm3 (1.96-9.15); NEUTROPHILS PERCENT AUTO 54 % (41-73); Platelet Count 347 K/mm3 (150-400); RDW Coefficient Variation 12.9 % (11.7-14.2); RDW Standard Deviation 44.1 fL (35.1-46.3); Red Blood Cell Count 4.45 M/mm3 (3.80-5.20); White Blood Cell Count 9.54 K/mm3 (4.00-11.30)
[2021-05-07 16:24] LABS: Alanine Aminotransfer (ALT/SGP 21 U/L (12-78); Albumin, Blood 3.4 g/dL (3.4-5.0); Albumin/Globulin Ratio 0.8 (0.8-1.8); Alk Phos 91 U/L (50-136); Anion Gap 3 mmol/L (6-16); Aspartate Aminotrans (AST/SGOT 21 U/L (12-37); Bilirubin, Total 0.2 mg/dL (0.1-1.0); Blood Urea Nitrogen 7 mg/dL (8-24); Bun/Creatinine Ratio 11.4 (12.0-20.0); CO2, Blood 26 mmol/L (21-32); Calcium, Blood 9.1 mg/dL (8.5-10.1); Chloride, Blood 110 mmol/L (98-108); Creatinine, Blood 0.62 mg/dL (0.40-1.00); Globulin, Blood 4.1 g/dL (2.2-4.0); Glomerular Filtration Rate >60 (60-); Glucose, Blood 89 mg/dL (70-99); Potassium, Blood 3.9 mmol/L (3.5-5.5); Sodium, Blood 139 mmol/L (136-145); Total Protein, Blood 7.5 g/dL (6.4-8.2); Troponin I <0.015 ng/mL (0.000-0.040)
[2021-05-07] MEDS ORDERED: HYDHCL25 PO (17:45)
[2021-05-07] MEDS ORDERED: ALBU90OI INH (17:49)
[2021-05-07] MEDS ORDERED: PRED20 PO (19:42)
[2021-05-07] MEDS ORDERED: IBUP600 PO (19:42)
== END 2021-05-07 19:51 | disposition home or self-care (01) ==
LOC: ER 14:34
PROVIDERS: Physician Assistant
DX: J06.9 Acute upper respiratory infection, unspecified (principal); J40 Bronchitis, not specified as acute or chronic; F17.210 Nicotine dependence, cigarettes, uncomplicated; I10 Essential (primary) hypertension; K21.9 Gastro-esophageal reflux disease without esophagitis; I25.10 Atherosclerotic heart disease of native coronary artery without angina pectoris; Z20.822 Contact with and (suspected) exposure to COVID-19; Z88.0 Allergy status to penicillin; Z88.2 Allergy status to sulfonamides; Z88.1 Allergy status to other antibiotic agents; Z88.5 Allergy status to narcotic agent; Z91.040 Latex allergy status; Z79.899 Other long term (current) drug therapy
CPT/HCPCS: 36415; 71045; 80053; 83880; 84484; 85025; 93005; 93010; 94640; 99285-25; A9270; J7512

== ENCOUNTER → 2022-05-01 | Outpatient (CLI) | payer OTHER ==
[~2022-05-01] MED LIST changes: +Cyclobenzaprine5 MG PO; +HYDHCL25 PO; +IBUP600 PO; +PRED20 PO
[2022-05-01 17:35] LABS: BASOPHILS ABSOLUTE AUTO 0.01 K/mm3 (0.00-0.23); BASOPHILS PERCENT AUTO 0 % (0-2); EOSINOPHILS PERCENT AUTO 0 % (0-6); Hematocrit 34.4 % (33.0-51.0); Hemoglobin 11.6 g/dL (11.5-16.0); IMMATURE GRAN ABSOLUTE AUTO 0.03 K/mm3 (0.00-0.10); IMMATURE GRAN PERCENT AUTO 0 % (0-1); LYMPHOCYTES ABSOLUTE AUTO 1.34 K/mm3 (0.84-5.20); LYMPHOCYTES PERCENT AUTO 16 % (21-46); MONOCYTES ABSOLUTE AUTO 0.45 K/mm3 (0.16-1.47); MONOCYTES PERCENT AUTO 5 % (4-13); Mean Corpuscular HGB 30.4 pg (26.0-34.0); Mean Corpuscular HGB Conc 33.7 g/dL (31.5-36.5); Mean Corpuscular Volume 90 fL (80-100); Mean Platelet Volume 11.2 fL (9.1-12.4); NEUTROPHILS ABSOLUTE AUTO 6.77 K/mm3 (1.96-9.15); NEUTROPHILS PERCENT AUTO 79 % (41-73); Platelet Count 242 K/mm3 (150-400); RDW Coefficient Variation 13.2 % (11.7-14.2); RDW Standard Deviation 43.4 fL (35.1-46.3); Red Blood Cell Count 3.82 M/mm3 (3.80-5.20)
[2022-05-01 17:53] LABS: Bun/Creatinine Ratio 20.6 (12.0-20.0); Calcium, Blood 8.9 mg/dL (8.5-10.1); Creatinine, Blood 0.68 mg/dL (0.40-1.00); Potassium, Blood 3.7 mmol/L (3.5-5.5); Thyroid Stimulating Hormone 0.263 uIU/mL (0.360-4.800)
== END | disposition home or self-care (01) ==
LOC: LAB 17:30 → LAB SHORT 17:30
PROVIDERS: Physician Assistant Surgical
DX: R42 Dizziness and giddiness (principal); R53.83 Other fatigue
CPT/HCPCS: 80048; 84443; 85025

== ENCOUNTER → 2022-08-07 | Outpatient (CLI) | payer OTHER ==
[2022-08-07 13:08] LABS: BASOPHILS ABSOLUTE AUTO 0.03 K/mm3 (0.00-0.23); BASOPHILS PERCENT AUTO 0 % (0-2); EOSINOPHILS ABSOLUTE AUTO 0.16 K/mm3 (0.00-0.68); EOSINOPHILS PERCENT AUTO 2 % (0-6); Hematocrit 35.1 % (33.0-51.0); Hemoglobin 11.6 g/dL (11.5-16.0); IMMATURE GRAN ABSOLUTE AUTO 0.01 K/mm3 (0.00-0.10); IMMATURE GRAN PERCENT AUTO 0 % (0-1); LYMPHOCYTES ABSOLUTE AUTO 2.98 K/mm3 (0.84-5.20); LYMPHOCYTES PERCENT AUTO 40 % (21-46); MONOCYTES ABSOLUTE AUTO 0.48 K/mm3 (0.16-1.47); MONOCYTES PERCENT AUTO 7 % (4-13); Mean Corpuscular HGB 29.9 pg (26.0-34.0); Mean Corpuscular Volume 91 fL (80-100); Mean Platelet Volume 11.2 fL (9.1-12.4); NEUTROPHILS ABSOLUTE AUTO 3.74 K/mm3 (1.96-9.15); NEUTROPHILS PERCENT AUTO 51 % (41-73); Platelet Count 208 K/mm3 (150-400); RDW Coefficient Variation 13.3 % (11.7-14.2); RDW Standard Deviation 43.7 fL (35.1-46.3); Red Blood Cell Count 3.88 M/mm3 (3.80-5.20)
[2022-08-07 13:27] LABS: Albumin, Blood 3.7 g/dL (3.4-5.0); Albumin/Globulin Ratio 1.1 (0.8-1.8); Bilirubin, Total 0.5 mg/dL (0.1-1.0); Bun/Creatinine Ratio 22.2 (12.0-20.0); Calcium, Blood 9.2 mg/dL (8.5-10.1); Creatinine, Blood 0.72 mg/dL (0.40-1.00); Free Thyroxine 1.24 ng/dL (0.70-1.60); Globulin, Blood 3.5 g/dL (2.2-4.0); Potassium, Blood 3.5 mmol/L (3.5-5.5); Thyroid Stimulating Hormone 2.152 uIU/mL (0.360-4.800); Total Protein, Blood 7.2 g/dL (6.4-8.2)
== END | disposition home or self-care (01) ==
LOC: LAB 13:02 → LAB SHORT 13:02
PROVIDERS: Chiropractor
DX: R60.0 Localized edema (principal); R79.89 Other specified abnormal findings of blood chemistry
CPT/HCPCS: 80053; 83880; 84439; 84443; 84481; 85025

== ENCOUNTER → 2022-08-07 | Outpatient (CLI) | payer OTHER | LOC: LAB 12:57 → LAB SHORT 12:57 | DX: R30.0 Dysuria (principal) | CPT/HCPCS: 87086 ==

== ENCOUNTER → 2022-09-02 | Outpatient (CLI) | payer OTHER | END | disposition home or self-care (01) | LOC: LAB SHORT 17:43 → LAB 17:43 | DX: R30.0 Dysuria (principal) | CPT/HCPCS: 87077; 87086; 87186 ==

== ENCOUNTER 2022-11-26 19:04 | Inpatient (IN) | payer OTHER ==
[~2022-11-26] VITALS: Ht 165.1 cm; Wt 102.0 kg
[2022-11-26 19:52] LABS: BASOPHILS ABSOLUTE AUTO 0.05 K/mm3 (0.00-0.23); BASOPHILS PERCENT AUTO 0 % (0-2); EOSINOPHILS ABSOLUTE AUTO 0.17 K/mm3 (0.00-0.68); EOSINOPHILS PERCENT AUTO 1 % (0-6); Hematocrit 33.1 % (33.0-51.0); Hemoglobin 11.2 g/dL (11.5-16.0); IMMATURE GRAN ABSOLUTE AUTO 0.08 K/mm3 (0.00-0.10); IMMATURE GRAN PERCENT AUTO 0 % (0-1); LYMPHOCYTES ABSOLUTE AUTO 2.17 K/mm3 (0.84-5.20); LYMPHOCYTES PERCENT AUTO 11 % (21-46); MONOCYTES ABSOLUTE AUTO 1.03 K/mm3 (0.16-1.47); MONOCYTES PERCENT AUTO 5 % (4-13); Mean Corpuscular HGB 30.5 pg (26.0-34.0); Mean Corpuscular HGB Conc 33.8 g/dL (31.5-36.5); Mean Corpuscular Volume 90 fL (80-100); Mean Platelet Volume 11.5 fL (9.1-12.4); NEUTROPHILS PERCENT AUTO 82 % (41-73); Platelet Count 203 K/mm3 (150-400); RDW Coefficient Variation 13.8 % (11.7-14.2); Red Blood Cell Count 3.67 M/mm3 (3.80-5.20)
[2022-11-26 20:28] LABS: Albumin, Blood 3.5 g/dL (3.4-5.0); Bilirubin, Total 0.6 mg/dL (0.1-1.0); Bun/Creatinine Ratio 40.1 (12.0-20.0); Calcium, Blood 9.7 mg/dL (8.5-10.1); Creatinine, Blood 0.65 mg/dL (0.40-1.00); Globulin, Blood 3.4 g/dL (2.2-4.0); Potassium, Blood 3.6 mmol/L (3.5-5.5); Total Protein, Blood 6.9 g/dL (6.4-8.2)
[2022-11-26] MEDS ORDERED: BACLOFEN10 M4 PO (20:38)
[2022-11-27 00:18] LABS: Source, Urine Clean Catch
[2022-11-27 00:33] LABS: Bilirubin, Urine Neg (Neg); Blood, Urine Neg (Neg); Glucose Qualitative, Urine Neg (Neg); Ketones, Urine Neg (Neg); Leukocyte Esterase, Urine Neg (Neg); Nitrite, Urine Neg (Neg); Protein, Urine 1+ (Neg); Specific Gravity, Urine 1.015 (1.003-1.022); Urobilinogen, Urine NORM (Normal)
[2022-11-27 00:51] LABS: U Buprenorphine Screen DETECTED
[2022-11-27 00:52] LABS: U Amphetamine Screen Not Detected; U Barbituate Screen Not Detected; U Benzodiazapine Screen Not Detected; U Cannabinoids Screen Not Detected; U Cocaine Screen Not Detected; U Methadone Screen Not Detected; U Methamphetamine Screen Not Detected; U Opiates Screen Not Detected; U Oxycodone Screen Not Detected; U Phencyclidine Screen Not Detected; U Propoxyphene Screen Not Detected
[2022-11-27 01:31] LABS: Appearance, Urine Clear (Clear); Color, Urine Yellow (P-Yellow)
[2022-11-27 05:37] LABS: BASOPHILS ABSOLUTE AUTO 0.04 K/mm3 (0.00-0.23); BASOPHILS PERCENT AUTO 0 % (0-2); EOSINOPHILS ABSOLUTE AUTO 0.19 K/mm3 (0.00-0.68); EOSINOPHILS PERCENT AUTO 1 % (0-6); Hemoglobin 10.8 g/dL (11.5-16.0); IMMATURE GRAN ABSOLUTE AUTO 0.08 K/mm3 (0.00-0.10); IMMATURE GRAN PERCENT AUTO 1 % (0-1); LYMPHOCYTES ABSOLUTE AUTO 1.37 K/mm3 (0.84-5.20); LYMPHOCYTES PERCENT AUTO 9 % (21-46); MONOCYTES ABSOLUTE AUTO 0.95 K/mm3 (0.16-1.47); MONOCYTES PERCENT AUTO 6 % (4-13); Mean Corpuscular HGB 30.4 pg (26.0-34.0); Mean Corpuscular HGB Conc 32.7 g/dL (31.5-36.5); Mean Corpuscular Volume 93 fL (80-100); NEUTROPHILS ABSOLUTE AUTO 13.16 K/mm3 (1.96-9.15); NEUTROPHILS PERCENT AUTO 83 % (41-73); Platelet Count 183 K/mm3 (150-400); RDW Coefficient Variation 13.9 % (11.7-14.2); RDW Standard Deviation 47.3 fL (35.1-46.3); Red Blood Cell Count 3.55 M/mm3 (3.80-5.20); White Blood Cell Count 15.79 K/mm3 (4.00-11.30)
--- NOTE | 2022-11-27 06:17 | NUR ---
SHIFT SUMMARY NOC ADMIT FROM ED WITH R LEG CELLULITIS FROM POSSIBLE SPIDER BITE. PT WENT TO PCP AND RED AREA AROUND BITE WAS MARGINED AND PT INSTRUCTED TO GO TO ED IF REDNESS SPREAD OUTSIDE MARGIN WHICH IT DID. PT CAN AMBULATE INDEPENDENTLY WITH SBA. PT SLEPT FOR THE MAJORITY OF SHIFT AFTER ADMIT. PT HAS NS @ 75 MLS/HR. PT IS CURRENTLY RESTING WITH BED IN LOWEST POSITION AND CALL LIGHT WITHIN REACH.
[2022-11-27 17:04] LABS: Albumin, Blood 2.9 g/dL (3.4-5.0); Albumin/Globulin Ratio 0.8 (0.8-1.8); Bilirubin, Total 0.5 mg/dL (0.1-1.0); Bun/Creatinine Ratio 32.4 (12.0-20.0); Creatinine, Blood 0.59 mg/dL (0.40-1.00); Globulin, Blood 3.8 g/dL (2.2-4.0); Potassium, Blood 3.6 mmol/L (3.5-5.5); Total Protein, Blood 6.7 g/dL (6.4-8.2)
--- NOTE | 2022-11-27 18:58 | NUR ---
SHIFT SUMMARY- PT IS ALERT AND ORIENTED X4. R/A 1 PERSON ASSIST TO BEDSIDE COMMODE. PT HAS BEEN COMPLAING OF PAIN. TREATED PER EMAR. RIGHT LEG IS SWOLLEN AND RED. PT IS HAVING DIFFICULTY MOVING AND AMBULATING DUE TO THE PAIN.
--- NOTE | 2022-11-28 03:37 | NUR ---
SHIFT SUMMARY NOC PT A/O X 4. PT IS 1PA WITH FWW TO BSC. PT HAD C/O OF PAIN IN RLE FROM CELLULITIS AND REPORTED CHRONIC LOWER BACK PAIN AND WAS MEDICATED PER EMAR. PT RLE IS STILL RED AND SWOLLEN. PT HAS NEW IV ACCESS IN R HAND THAT FLUSHES EASILY, AND IS SALINE LOCKED. PT IS ON CLINDAMYCIN FOR CELLULITIS INFECTION. PT IS CURRENTLY RESTING WITH BED IN LOWEST POSITION, AND CALL LIGHT WITHIN REACH.
[2022-11-28 05:33] LABS: BASOPHILS ABSOLUTE AUTO 0.04 K/mm3 (0.00-0.23); BASOPHILS PERCENT AUTO 0 % (0-2); EOSINOPHILS ABSOLUTE AUTO 0.06 K/mm3 (0.00-0.68); EOSINOPHILS PERCENT AUTO 0 % (0-6); Hematocrit 29.3 % (33.0-51.0); Hemoglobin 9.6 g/dL (11.5-16.0); IMMATURE GRAN ABSOLUTE AUTO 0.08 K/mm3 (0.00-0.10); IMMATURE GRAN PERCENT AUTO 1 % (0-1); LYMPHOCYTES ABSOLUTE AUTO 1.46 K/mm3 (0.84-5.20); LYMPHOCYTES PERCENT AUTO 11 % (21-46); MONOCYTES ABSOLUTE AUTO 0.82 K/mm3 (0.16-1.47); MONOCYTES PERCENT AUTO 6 % (4-13); Mean Corpuscular HGB 30.3 pg (26.0-34.0); Mean Corpuscular HGB Conc 32.8 g/dL (31.5-36.5); Mean Corpuscular Volume 92 fL (80-100); Mean Platelet Volume 11.8 fL (9.1-12.4); NEUTROPHILS ABSOLUTE AUTO 11.04 K/mm3 (1.96-9.15); NEUTROPHILS PERCENT AUTO 82 % (41-73); Platelet Count 168 K/mm3 (150-400); RDW Coefficient Variation 13.9 % (11.7-14.2); RDW Standard Deviation 47.2 fL (35.1-46.3); Red Blood Cell Count 3.17 M/mm3 (3.80-5.20)
[2022-11-28 06:00] LABS: Bun/Creatinine Ratio 18.8 (12.0-20.0); Calcium, Blood 8.8 mg/dL (8.5-10.1); Creatinine, Blood 0.53 mg/dL (0.40-1.00); Potassium, Blood 3.3 mmol/L (3.5-5.5)
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
--- NOTE | 2022-11-29 17:31 | NUR ---
SHIFT SUMMARY NO ACUTE CHANGES DURING SHIFT. PT ALERT AND ORIENTED, CALLS APPROPRIATELY. PT REMAINS ON RA, INDEPENDENT IN ROOM. IV ABX DISCONTINUED, TRANSITIONED TO PO IN PREPARATION FOR POSSIBLE D/C IN AM. PT MEDICATED WITH PRN MEDICATIONS MULTIPLE TIMES DURING SHIFT, EFFECTIVE. DRESSING CHANGED PER PT REQUEST, MEPILEX CDI. WILL CONTINUE TO MONITOR. CALL LIGHT WITHIN REACH.
[2022-11-30 05:41] LABS: BASOPHILS ABSOLUTE AUTO 0.05 K/mm3 (0.00-0.23); BASOPHILS PERCENT AUTO 1 % (0-2); EOSINOPHILS ABSOLUTE AUTO 0.28 K/mm3 (0.00-0.68); EOSINOPHILS PERCENT AUTO 4 % (0-6); Hematocrit 31.2 % (33.0-51.0); Hemoglobin 9.9 g/dL (11.5-16.0); IMMATURE GRAN ABSOLUTE AUTO 0.03 K/mm3 (0.00-0.10); IMMATURE GRAN PERCENT AUTO 0 % (0-1); LYMPHOCYTES ABSOLUTE AUTO 2.45 K/mm3 (0.84-5.20); LYMPHOCYTES PERCENT AUTO 35 % (21-46); MONOCYTES ABSOLUTE AUTO 0.58 K/mm3 (0.16-1.47); MONOCYTES PERCENT AUTO 8 % (4-13); Mean Corpuscular HGB 29.7 pg (26.0-34.0); Mean Corpuscular HGB Conc 31.7 g/dL (31.5-36.5); Mean Corpuscular Volume 94 fL (80-100); Mean Platelet Volume 11.9 fL (9.1-12.4); NEUTROPHILS ABSOLUTE AUTO 3.71 K/mm3 (1.96-9.15); NEUTROPHILS PERCENT AUTO 52 % (41-73); Platelet Count 230 K/mm3 (150-400); RDW Coefficient Variation 13.7 % (11.7-14.2); Red Blood Cell Count 3.33 M/mm3 (3.80-5.20)
[2022-11-30 06:16] LABS: Bun/Creatinine Ratio 20.6 (12.0-20.0); Creatinine, Blood 0.63 mg/dL (0.40-1.00); Potassium, Blood 3.8 mmol/L (3.5-5.5)
[2022-11-30] MEDS ORDERED: ASPI81CH PO (10:36)
[2022-11-30] MEDS ORDERED: LOSA25 PO (10:37)
[2022-11-30] MEDS ORDERED: LINE600 PO (10:37)
[2022-11-30] MEDS ORDERED: VISBIOME 112.51 EACH PO (10:38)
== END 2022-11-30 11:34 | disposition home or self-care (01) | DRG 872 ==
LOC: ER 19:04 → MEDS 11-27 01:42
PROVIDERS: Internal Medicine; Student in an Organized Health Care Education/Training Program; ADMIT Internal Medicine
DX: A41.02 Sepsis due to Methicillin resistant Staphylococcus aureus (principal); L03.115 Cellulitis of right lower limb; Z16.29 Resistance to other single specified antibiotic; L97.219 Non-pressure chronic ulcer of right calf with unspecified severity; I25.10 Atherosclerotic heart disease of native coronary artery without angina pectoris; K21.9 Gastro-esophageal reflux disease without esophagitis; I10 Essential (primary) hypertension; F20.9 Schizophrenia, unspecified; I87.8 Other specified disorders of veins; F41.9 Anxiety disorder, unspecified; K25.9 Gastric ulcer, unspecified as acute or chronic, without hemorrhage or perforation; F31.9 Bipolar disorder, unspecified; G35 Multiple sclerosis; F17.210 Nicotine dependence, cigarettes, uncomplicated; F15.21 Other stimulant dependence, in remission; T63.301A Toxic effect of unspecified spider venom, accidental (unintentional), initial encounter; F12.10 Cannabis abuse, uncomplicated; Z88.0 Allergy status to penicillin; Z88.2 Allergy status to sulfonamides; Z88.1 Allergy status to other antibiotic agents; Z88.5 Allergy status to narcotic agent; Z91.040 Latex allergy status; Z88.8 Allergy status to other drugs, medicaments and biological substances; Z79.899 Other long term (current) drug therapy; Z86.73 Personal history of transient ischemic attack (TIA), and cerebral infarction without residual deficits; I25.2 Old myocardial infarction; Z90.710 Acquired absence of both cervix and uterus; Z90.721 Acquired absence of ovaries, unilateral; Z95.5 Presence of coronary angioplasty implant and graft; Z90.49 Acquired absence of other specified parts of digestive tract; Z98.890 Other specified postprocedural states; Z96.651 Presence of right artificial knee joint
CPT/HCPCS: 36415; 73701; 80048; 80053; 83605; 83880; 85025; 96365-59; 96366; 96375; 99284-25; A9270; J1650; J1885; J2405; J2550; J3010; J3370; J7030; J7050; Q9967

== ENCOUNTER → 2022-11-27 | Outpatient (CLI) | payer OTHER ==
[~2022-11-27] MED LIST changes: +ASPI81CH PO; +BACLOFEN10 M4 PO; +LINE600 PO; +LOSA25 PO; +VISBIOME 112.51 EACH PO
== END | disposition home or self-care (01) ==
LOC: LAB SHORT 12:00
DX: L03.115 Cellulitis of right lower limb (principal)
CPT/HCPCS: 87070; 87077; 87186; 87205

== ENCOUNTER 2022-12-25 18:53 | Emergency (ER) | payer OTHER ==
[~2022-12-25] VITALS: Ht 160 cm; Wt 95.7 kg
== END 2022-12-25 22:18 | disposition home or self-care (01) ==
LOC: ER 18:53
DX: S00.83XA Contusion of other part of head, initial encounter (principal); M25.561 Pain in right knee; W01.0XXA Fall on same level from slipping, tripping and stumbling without subsequent striking against object, initial encounter; I10 Essential (primary) hypertension; I25.10 Atherosclerotic heart disease of native coronary artery without angina pectoris; I25.2 Old myocardial infarction; F17.210 Nicotine dependence, cigarettes, uncomplicated
CPT/HCPCS: 70450; 73562-RT

== ENCOUNTER → 2023-07-09 | Outpatient (CLI) | payer OTHER ==
[~2023-07-09] MED LIST changes: +METHYLPREDNISOL PO
[2023-07-09 12:53] LABS: BASOPHILS ABSOLUTE AUTO 0.08 K/mm3 (0.00-0.23); BASOPHILS PERCENT AUTO 1 % (0-2); EOSINOPHILS ABSOLUTE AUTO 0.06 K/mm3 (0.00-0.68); EOSINOPHILS PERCENT AUTO 1 % (0-6); Hematocrit 44.5 % (33.0-51.0); Hemoglobin 14.6 g/dL (11.5-16.0); IMMATURE GRAN ABSOLUTE AUTO 0.04 K/mm3 (0.00-0.10); IMMATURE GRAN PERCENT AUTO 0 % (0-1); LYMPHOCYTES ABSOLUTE AUTO 3.97 K/mm3 (0.84-5.20); LYMPHOCYTES PERCENT AUTO 39 % (21-46); MONOCYTES ABSOLUTE AUTO 0.48 K/mm3 (0.16-1.47); MONOCYTES PERCENT AUTO 5 % (4-13); Mean Corpuscular HGB 30.7 pg (26.0-34.0); Mean Corpuscular HGB Conc 32.8 g/dL (31.5-36.5); Mean Corpuscular Volume 94 fL (80-100); Mean Platelet Volume 10.7 fL (9.1-12.4); NEUTROPHILS ABSOLUTE AUTO 5.64 K/mm3 (1.96-9.15); NEUTROPHILS PERCENT AUTO 55 % (41-73); Platelet Count 268 K/mm3 (150-400); RDW Coefficient Variation 13.7 % (11.7-14.2); RDW Standard Deviation 46.9 fL (35.1-46.3); Red Blood Cell Count 4.76 M/mm3 (3.80-5.20); White Blood Cell Count 10.27 K/mm3 (4.00-11.30)
[2023-07-09 13:04] LABS: Albumin, Blood 4.3 g/dL (3.4-5.0); Bilirubin, Total 0.4 mg/dL (0.1-1.0); Bun/Creatinine Ratio 15.6 (12.0-20.0); Calcium, Blood 9.9 mg/dL (8.5-10.1); Creatinine, Blood 0.96 mg/dL (0.40-1.00); Globulin, Blood 4.2 g/dL (2.2-4.0); Total Protein, Blood 8.5 g/dL (6.4-8.2)
== END ==
LOC: LAB SHORT 12:47 → LAB 12:47
PROVIDERS: Physician Assistant
DX: R07.9 Chest pain, unspecified (principal)
CPT/HCPCS: 80053; 84484; 85025

== ENCOUNTER 2023-07-15 13:36 | Emergency (ER) | payer OTHER ==
[~2023-07-15] VITALS: Ht 154.9 cm; Wt 79.4 kg
[~2023-07-15 13:36] MED LIST changes: -METHYLPREDNISOL PO
[2023-07-15 14:10] VITALS: BP 133/85
[2023-07-15] MEDS ORDERED: METHYLPREDNISOL PO (16:56)
== END 2023-07-15 17:05 | disposition home or self-care (01) ==
LOC: ER 13:36
DX: S00.31XA Abrasion of nose, initial encounter (principal); M25.562 Pain in left knee; R07.81 Pleurodynia; W01.0XXA Fall on same level from slipping, tripping and stumbling without subsequent striking against object, initial encounter; G35 Multiple sclerosis; I10 Essential (primary) hypertension; I25.10 Atherosclerotic heart disease of native coronary artery without angina pectoris; F17.210 Nicotine dependence, cigarettes, uncomplicated
CPT/HCPCS: 70450; 71101; 73562-LT; 96372; 99284-25; J1885; J7509

== ENCOUNTER 2024-03-10 21:47 | Emergency (ER) | payer OTHER ==
[~2024-03-10] VITALS: Ht 154.9 cm; Wt 95.2 kg
[~2024-03-10 21:47] MED LIST changes: +GABA300 PO; +METHYLPREDNISOL PO
[2024-03-10 22:32] VITALS: BP 140/86
[2024-03-10 23:12] LABS: Albumin, Blood 3.4 g/dL (3.4-5.0); Albumin/Globulin Ratio 1.1 (0.8-1.8); Bilirubin, Total 0.4 mg/dL (0.1-1.0); Bun/Creatinine Ratio 38.3 (12.0-20.0); Creatinine, Blood 0.57 mg/dL (0.40-1.00); Potassium, Blood 3.7 mmol/L (3.5-5.5); Total Protein, Blood 6.4 g/dL (6.4-8.2)
[2024-03-11 00:39] LABS: BASOPHILS ABSOLUTE AUTO 0.04 K/mm3 (0.00-0.23); BASOPHILS PERCENT AUTO 1 % (0-2); EOSINOPHILS ABSOLUTE AUTO 0.17 K/mm3 (0.00-0.68); EOSINOPHILS PERCENT AUTO 2 % (0-6); Hematocrit 32.3 % (33.0-51.0); Hemoglobin 10.8 g/dL (11.5-16.0); IMMATURE GRAN ABSOLUTE AUTO 0.01 K/mm3 (0.00-0.10); IMMATURE GRAN PERCENT AUTO 0 % (0-1); LYMPHOCYTES ABSOLUTE AUTO 2.71 K/mm3 (0.84-5.20); LYMPHOCYTES PERCENT AUTO 38 % (21-46); MONOCYTES ABSOLUTE AUTO 0.39 K/mm3 (0.16-1.47); MONOCYTES PERCENT AUTO 6 % (4-13); Mean Corpuscular HGB 30.6 pg (26.0-34.0); Mean Corpuscular HGB Conc 33.4 g/dL (31.5-36.5); Mean Corpuscular Volume 92 fL (80-100); Mean Platelet Volume 11.1 fL (9.1-12.4); NEUTROPHILS ABSOLUTE AUTO 3.74 K/mm3 (1.96-9.15); NEUTROPHILS PERCENT AUTO 53 % (41-73); Platelet Count 170 K/mm3 (150-400); RDW Coefficient Variation 12.6 % (11.7-14.2); RDW Standard Deviation 41.8 fL (35.1-46.3); Red Blood Cell Count 3.53 M/mm3 (3.80-5.20); White Blood Cell Count 7.06 K/mm3 (4.00-11.30)
== END 2024-03-11 03:02 | disposition home or self-care (01) ==
LOC: ER 21:47
PROVIDERS: Physician Assistant
DX: K13.79 Other lesions of oral mucosa (principal); J32.9 Chronic sinusitis, unspecified; I10 Essential (primary) hypertension; K21.9 Gastro-esophageal reflux disease without esophagitis; I25.2 Old myocardial infarction; F17.210 Nicotine dependence, cigarettes, uncomplicated; Z79.82 Long term (current) use of aspirin; Z86.73 Personal history of transient ischemic attack (TIA), and cerebral infarction without residual deficits; Z79.899 Other long term (current) drug therapy; Z88.0 Allergy status to penicillin; Z88.2 Allergy status to sulfonamides; Z88.1 Allergy status to other antibiotic agents; Z88.5 Allergy status to narcotic agent; Z91.040 Latex allergy status; Z88.8 Allergy status to other drugs, medicaments and biological substances
CPT/HCPCS: 80053; 85025; 99283

== ENCOUNTER 2024-04-07 19:05 | Emergency (ER) | payer OTHER ==
[~2024-04-07] VITALS: Ht 154.9 cm; Wt 81.7 kg
[2024-04-07 20:09] LABS: Source, Urine Clean Catch
[2024-04-07 20:12] LABS: BASOPHILS ABSOLUTE AUTO 0.04 K/mm3 (0.00-0.23); BASOPHILS PERCENT AUTO 1 % (0-2); EOSINOPHILS PERCENT AUTO 3 % (0-6); Hematocrit 34.1 % (33.0-51.0); Hemoglobin 11.3 g/dL (11.5-16.0); IMMATURE GRAN ABSOLUTE AUTO 0.01 K/mm3 (0.00-0.10); IMMATURE GRAN PERCENT AUTO 0 % (0-1); LYMPHOCYTES PERCENT AUTO 41 % (21-46); MONOCYTES ABSOLUTE AUTO 0.56 K/mm3 (0.16-1.47); MONOCYTES PERCENT AUTO 8 % (4-13); Mean Corpuscular HGB 30.6 pg (26.0-34.0); Mean Corpuscular HGB Conc 33.1 g/dL (31.5-36.5); Mean Corpuscular Volume 92 fL (80-100); Mean Platelet Volume 11.2 fL (9.1-12.4); NEUTROPHILS PERCENT AUTO 48 % (41-73); Platelet Count 190 K/mm3 (150-400); RDW Coefficient Variation 12.8 % (11.7-14.2); RDW Standard Deviation 43.6 fL (35.1-46.3); Red Blood Cell Count 3.69 M/mm3 (3.80-5.20); White Blood Cell Count 6.91 K/mm3 (4.00-11.30)
[2024-04-07 20:21] LABS: Appearance, Urine Hazy (Clear); Bilirubin, Urine Neg (Neg); Blood, Urine Neg (Neg); Color, Urine Yellow (P-Yellow); Glucose Qualitative, Urine Neg (Neg); Ketones, Urine Neg (Neg); Leukocyte Esterase, Urine 1+ (Neg); Nitrite, Urine Neg (Neg); Protein, Urine 1+ (Neg); Specific Gravity, Urine 1.015 (1.003-1.022); Urobilinogen, Urine NORM (Normal)
[2024-04-07 20:31] LABS: Albumin, Blood 3.7 g/dL (3.4-5.0); Albumin/Globulin Ratio 1.2 (0.8-1.8); Bilirubin, Total 0.4 mg/dL (0.1-1.0); Bun/Creatinine Ratio 27.1 (12.0-20.0); Creatinine, Blood 0.74 mg/dL (0.40-1.00); Globulin, Blood 3.2 g/dL (2.2-4.0); Potassium, Blood 3.9 mmol/L (3.5-5.5); Total Protein, Blood 6.9 g/dL (6.4-8.2)
[2024-04-07 20:50] LABS: Amorphous Mod (0-Heavy); Bacteria Mod /hpf; Red Blood Cells, Urine 0-2 /hpf (0-2); Squamous Epithelial Cells Few /hpf (Few); White Blood Cells, Urine 0-2 /hpf (0-5)
[2024-04-07 23:04] VITALS: BP 144/88
== END 2024-04-07 23:08 | disposition home or self-care (01) ==
LOC: ER 19:05
PROVIDERS: Emergency Medicine
DX: S81.831A Puncture wound without foreign body, right lower leg, initial encounter (principal); M79.89 Other specified soft tissue disorders; Z88.0 Allergy status to penicillin; Z88.1 Allergy status to other antibiotic agents; Z88.2 Allergy status to sulfonamides; Z88.5 Allergy status to narcotic agent; Z91.040 Latex allergy status; Z79.899 Other long term (current) drug therapy; Z79.82 Long term (current) use of aspirin; I10 Essential (primary) hypertension; K21.9 Gastro-esophageal reflux disease without esophagitis; F17.210 Nicotine dependence, cigarettes, uncomplicated; X58.XXXA Exposure to other specified factors, initial encounter
CPT/HCPCS: 80053; 81001; 85025; 87086; 93971; 99283-25

== ENCOUNTER 2024-09-05 15:44 | Emergency (ER) | payer OTHER ==
[~2024-09-05] VITALS: Ht 154.9 cm; Wt 88.0 kg
[2024-09-05 16:13] VITALS: BP 145/78
[2024-09-05 16:36] LABS: BASOPHILS ABSOLUTE AUTO 0.05 K/mm3 (0.00-0.23); BASOPHILS PERCENT AUTO 0 % (0-2); EOSINOPHILS ABSOLUTE AUTO 0.22 K/mm3 (0.00-0.68); EOSINOPHILS PERCENT AUTO 2 % (0-6); Hematocrit 40.6 % (33.0-51.0); Hemoglobin 13.4 g/dL (11.5-16.0); IMMATURE GRAN ABSOLUTE AUTO 0.02 K/mm3 (0.00-0.10); IMMATURE GRAN PERCENT AUTO 0 % (0-1); LYMPHOCYTES ABSOLUTE AUTO 3.31 K/mm3 (0.84-5.20); LYMPHOCYTES PERCENT AUTO 29 % (21-46); MONOCYTES ABSOLUTE AUTO 0.63 K/mm3 (0.16-1.47); MONOCYTES PERCENT AUTO 6 % (4-13); Mean Corpuscular HGB 30.7 pg (26.0-34.0); Mean Corpuscular Volume 93 fL (80-100); Mean Platelet Volume 10.5 fL (9.1-12.4); NEUTROPHILS ABSOLUTE AUTO 7.07 K/mm3 (1.96-9.15); NEUTROPHILS PERCENT AUTO 63 % (41-73); Platelet Count 233 K/mm3 (150-400); RDW Coefficient Variation 14.1 % (11.7-14.2); RDW Standard Deviation 48.4 fL (35.1-46.3); Red Blood Cell Count 4.37 M/mm3 (3.80-5.20)
[2024-09-05 16:52] LABS: Source, Urine Clean Catch
[2024-09-05 17:02] LABS: Appearance, Urine Clear (Clear); Bilirubin, Urine Neg (Neg); Blood, Urine Neg (Neg); Color, Urine Yellow (P-Yellow); Glucose Qualitative, Urine Neg (Neg); Ketones, Urine Neg (Neg); Leukocyte Esterase, Urine 1+ (Neg); Nitrite, Urine Neg (Neg); Protein, Urine Neg (Neg); Urobilinogen, Urine NORM (Normal); pH, Urine 6.5 (5.0-8.0)
[2024-09-05 17:03] LABS: Albumin, Blood 3.6 g/dL (3.4-5.0); Albumin/Globulin Ratio 0.9 (0.8-1.8); Bilirubin, Total 0.3 mg/dL (0.1-1.0); Bun/Creatinine Ratio 29.4 (12.0-20.0); Calcium, Blood 9.5 mg/dL (8.5-10.1); Creatinine, Blood 0.75 mg/dL (0.40-1.00); Globulin, Blood 4.1 g/dL (2.2-4.0); Potassium, Blood 4.1 mmol/L (3.5-5.5); Total Protein, Blood 7.7 g/dL (6.4-8.2)
[2024-09-05 17:09] LABS: Bacteria Few /hpf; Red Blood Cells, Urine 0-2 /hpf (0-2); Squamous Epithelial Cells Few /hpf (Few)
== END 2024-09-05 19:43 | disposition left against medical advice (07) ==
LOC: ER 15:44
PROVIDERS: Physician Assistant
DX: R19.5 Other fecal abnormalities (principal); R19.7 Diarrhea, unspecified; Z53.21 Procedure and treatment not carried out due to patient leaving prior to being seen by health care provider
CPT/HCPCS: 80053; 81001; 83690; 85025; 87086; 93005; 93010; 99282-25

== ENCOUNTER 2024-09-06 01:22 | Emergency (ER) | payer OTHER ==
[~2024-09-06] VITALS: Ht 154.9 cm; Wt 88.0 kg
[2024-09-06 01:35] VITALS: BP 129/89
== END 2024-09-06 04:19 | disposition home or self-care (01) ==
LOC: ER 01:22
DX: K92.1 Melena (principal); K21.9 Gastro-esophageal reflux disease without esophagitis; I10 Essential (primary) hypertension; F17.200 Nicotine dependence, unspecified, uncomplicated; Z86.73 Personal history of transient ischemic attack (TIA), and cerebral infarction without residual deficits; Z79.82 Long term (current) use of aspirin; Z79.899 Other long term (current) drug therapy; Z88.0 Allergy status to penicillin; Z88.2 Allergy status to sulfonamides; Z88.1 Allergy status to other antibiotic agents; Z88.5 Allergy status to narcotic agent; Z91.040 Latex allergy status
CPT/HCPCS: 99284

== ENCOUNTER 2024-11-14 13:43 | Inpatient (IN) | payer OTHER ==
[~2024-11-14] VITALS: Ht 154.9 cm; Wt 81.7 kg
[~2024-11-14 13:43] MED LIST changes: -GABA300 PO; +GABAPENTIN600 MG PO
[2024-11-14 14:28] LABS: BASOPHILS ABSOLUTE AUTO 0.06 K/mm3 (0.00-0.23); BASOPHILS PERCENT AUTO 1 % (0-2); EOSINOPHILS ABSOLUTE AUTO 0.11 K/mm3 (0.00-0.68); EOSINOPHILS PERCENT AUTO 1 % (0-6); Hematocrit 40.7 % (33.0-51.0); Hemoglobin 13.9 g/dL (11.5-16.0); IMMATURE GRAN ABSOLUTE AUTO 0.04 K/mm3 (0.00-0.10); IMMATURE GRAN PERCENT AUTO 0 % (0-1); LYMPHOCYTES ABSOLUTE AUTO 3.62 K/mm3 (0.84-5.20); LYMPHOCYTES PERCENT AUTO 28 % (21-46); MONOCYTES ABSOLUTE AUTO 0.65 K/mm3 (0.16-1.47); MONOCYTES PERCENT AUTO 5 % (4-13); Mean Corpuscular HGB 30.1 pg (26.0-34.0); Mean Corpuscular HGB Conc 34.2 g/dL (31.5-36.5); Mean Corpuscular Volume 88 fL (80-100); Mean Platelet Volume 10.6 fL (9.1-12.4); NEUTROPHILS ABSOLUTE AUTO 8.47 K/mm3 (1.96-9.15); NEUTROPHILS PERCENT AUTO 65 % (41-73); Platelet Count 251 K/mm3 (150-400); RDW Coefficient Variation 13.4 % (11.7-14.2); RDW Standard Deviation 43.2 fL (35.1-46.3); Red Blood Cell Count 4.62 M/mm3 (3.80-5.20); White Blood Cell Count 12.95 K/mm3 (4.00-11.30)
[2024-11-14 14:54] LABS: Albumin, Blood 3.7 g/dL (3.4-5.0); Albumin/Globulin Ratio 0.9 (0.8-1.8); Bilirubin, Total 0.4 mg/dL (0.1-1.0); Bun/Creatinine Ratio 20.8 (12.0-20.0); Calcium, Blood 9.8 mg/dL (8.5-10.1); Creatinine, Blood 0.58 mg/dL (0.40-1.00); Globulin, Blood 4.1 g/dL (2.2-4.0); Potassium, Blood 3.4 mmol/L (3.5-5.5); Total Protein, Blood 7.8 g/dL (6.4-8.2)
[2024-11-14 15:09] LABS: Source, Urine Clean Catch
[2024-11-14 15:24] LABS: Appearance, Urine Hazy (Clear); Bilirubin, Urine Neg (Neg); Blood, Urine 1+ (Neg); Glucose Qualitative, Urine Neg (Neg); Ketones, Urine Neg (Neg); Leukocyte Esterase, Urine 3+ (Neg); Nitrite, Urine Neg (Neg); Protein, Urine 2+ (Neg); Specific Gravity, Urine 1.005 (1.003-1.022); Urobilinogen, Urine NORM (Normal); pH, Urine 6.5 (5.0-8.0)
[2024-11-14 15:52] LABS: Color, Urine Pale Yellow (P-Yellow)
[2024-11-14 15:56] LABS: Bacteria Mod /hpf; Mucus Light (0-Heavy); Red Blood Cells, Urine 0-2 /hpf (0-2); Squamous Epithelial Cells Mod /hpf (Few); Transitional Epithelial Cells Rare /hpf (0-Rare)
[2024-11-14] MEDS ORDERED: Lidocaine 2% Viscous Soln 15 ML UDC PO ONE (17:20)
[2024-11-14] MEDS ORDERED: Gabapentin 300 MG Cap PO ONE (17:20)
[2024-11-14] MEDS ORDERED: Famotidine 20 MG Tab PO ONE (17:20)
[2024-11-14] MEDS ORDERED: NS 1,000 ML IV SCH ×2 (17:20→20:10)
[2024-11-14] MEDS ORDERED: Mag Hydrox/AL Hydrox/Simeth 30 ML UDC PO ONE (17:20)
[2024-11-14] MEDS ORDERED: Ondansetron HCl 2 MG / ML 2ML Vial IV ONE (17:55)
[2024-11-14] MEDS ORDERED: FentaNYL Citrate 50 MCG/ML 2 ML Injection IV ONE (18:15)
[2024-11-14] MEDS ORDERED: Ondansetron HCl 2 MG / ML 2ML Vial IV PRN (20:05)
[2024-11-14] MEDS ORDERED: FLU VACC TS2024-25(6MOS UP)/PF 45 MCG/0.5 ML SYRINGE IM SCH (20:05)
[2024-11-14] MEDS ORDERED: FentaNYL Citrate 50 MCG/ML 2 ML Injection IV PRN ×2 (20:05→21:35)
[2024-11-14] MEDS ORDERED: Potassium Chloride 40 MEQ in NS 250 ML IV STA (20:08)
[2024-11-14 20:42] LABS: Hematocrit 36.4 % (33.0-51.0); Hemoglobin 12.4 g/dL (11.5-16.0)
[2024-11-14] MEDS ORDERED: MethylPREDNISolone Sod Succ 125 MG Vial IV SCH (21:00)
[2024-11-14] MEDS ORDERED: Albuterol HFA200 ACT/6.7 GM INH INH PRN (21:10)
[2024-11-14 21:27] LABS: Influenza A, PCR NEGATIVE (NEGATIVE); Influenza B, PCR NEGATIVE (NEGATIVE); Resp Syncytial Virus, PCR NEGATIVE (NEGATIVE); SARS-Cov-2 (COVID-19) PCR, MMC NEGATIVE (NEGATIVE)
[2024-11-14] MEDS ORDERED: TAMSULOSIN HCL0.4 M1 PO (22:34)
[2024-11-14] MEDS ORDERED: BACL10 PO (22:35)
[2024-11-14] MEDS ORDERED: PRILOSEC OTC20 MG PO (22:35)
[2024-11-14] MEDS ORDERED: BUPRENORPHIN-N1 EAC5 SL (22:36)
[2024-11-14] MEDS ORDERED: BUPRENORPHIN-N1 EAC1 SL (22:37)
[2024-11-14] MEDS ORDERED: Nitrostat0.3 MG SL (22:38)
[2024-11-15 03:02] LABS: BASOPHILS ABSOLUTE AUTO 0.02 K/mm3 (0.00-0.23); BASOPHILS PERCENT AUTO 0 % (0-2); EOSINOPHILS PERCENT AUTO 0 % (0-6); Hematocrit 38.8 % (33.0-51.0); Hemoglobin 12.9 g/dL (11.5-16.0); IMMATURE GRAN ABSOLUTE AUTO 0.02 K/mm3 (0.00-0.10); IMMATURE GRAN PERCENT AUTO 0 % (0-1); LYMPHOCYTES ABSOLUTE AUTO 1.02 K/mm3 (0.84-5.20); LYMPHOCYTES PERCENT AUTO 13 % (21-46); MONOCYTES ABSOLUTE AUTO 0.05 K/mm3 (0.16-1.47); MONOCYTES PERCENT AUTO 1 % (4-13); Mean Corpuscular HGB 29.6 pg (26.0-34.0); Mean Corpuscular HGB Conc 33.2 g/dL (31.5-36.5); Mean Corpuscular Volume 89 fL (80-100); Mean Platelet Volume 10.4 fL (9.1-12.4); NEUTROPHILS ABSOLUTE AUTO 6.75 K/mm3 (1.96-9.15); NEUTROPHILS PERCENT AUTO 86 % (41-73); Platelet Count 198 K/mm3 (150-400); RDW Coefficient Variation 13.3 % (11.7-14.2); RDW Standard Deviation 43.7 fL (35.1-46.3); Red Blood Cell Count 4.36 M/mm3 (3.80-5.20); White Blood Cell Count 7.86 K/mm3 (4.00-11.30)
[2024-11-15 03:23] LABS: Albumin, Blood 3.4 g/dL (3.4-5.0); Albumin/Globulin Ratio 0.9 (0.8-1.8); Bilirubin, Total 0.4 mg/dL (0.1-1.0); Bun/Creatinine Ratio 22.3 (12.0-20.0); Calcium, Blood 9.6 mg/dL (8.5-10.1); Creatinine, Blood 0.63 mg/dL (0.40-1.00); Globulin, Blood 3.8 g/dL (2.2-4.0); Potassium, Blood 4.6 mmol/L (3.5-5.5); Total Protein, Blood 7.2 g/dL (6.4-8.2)
--- NOTE | 2024-11-15 04:57 | NUR ---
SHIFT SUMMARY PATIENT IS ALERT AND ORIENTED. PATIENT HAS HAD NO ACUTE EVENTS THIS SHIFT. VITAL SIGNS REVIEWED. PATIENT IS ADMITTED FOR COLITIS THIS SHIFT. PATIENT HAS COMPLAINED OF PAIN THIS SHIFT. PATIENT HAS HAD NO COMPLAINTS OF NAUSEA, SOB OR VOMITTING THIS SHIFT. IV FLUIDS INFUSING ORDERED. PATIENT HAS BEEN NPO SINCE ADMITTANCE FOR POSSIBLE COLONSCOPY. BED IN LOCKED AND LOWEST POSITION.
[2024-11-15 07:40] VITALS: BP 107/73
[2024-11-15] MEDS ORDERED: Baclofen 10 MG Tab PO PRN (08:50)
[2024-11-15] MEDS ORDERED: Nitroglycerin 0.4 MG SUBL SL PRN (08:55)
[2024-11-15] MEDS ORDERED: Tamsulosin HCl 0.4 MG Cap PO SCH (09:00)
[2024-11-15] MEDS ORDERED: Buprenorphine HCL/Naloxone HCL 8MG-2MG Tab SL SCH ×2 (09:00→12:00)
[2024-11-15] MEDS ORDERED: Lactobacil 2-S.Thermo-Bifido 1 1 Cap PO SCH (09:00)
[2024-11-15] MEDS ORDERED: Gabapentin 300 MG Cap PO SCH (09:00)
[2024-11-15 09:10] LABS: Hemoglobin 12.5 g/dL (11.5-16.0)
[2024-11-15] MEDS ORDERED: Baclofen 10 MG Tab PO ONE (10:40)
[2024-11-15] MEDS ORDERED: Fluticasone 0.05% Nasal Spray SCH (12:00)
[2024-11-15] MEDS ORDERED: Ketorolac Tromethamine 15mg Vial IV PRN (12:15)
[2024-11-15 12:28] VITALS: BP 119/68
[2024-11-15] MEDS ORDERED: Nicotine 7 MG PATCH TOP SCH (13:00)
[2024-11-15 13:51] LABS: U Amphetamine Screen Not Detected; U Barbituate Screen Not Detected; U Benzodiazapine Screen Not Detected; U Buprenorphine Screen Not Detected; U Cannabinoids Screen Not Detected; U Cocaine Screen Not Detected; U Methadone Screen Not Detected; U Methamphetamine Screen Not Detected; U Opiates Screen Not Detected; U Oxycodone Screen Not Detected; U Phencyclidine Screen Not Detected
[2024-11-15 15:35] LABS: Hematocrit 35.6 % (33.0-51.0); Hemoglobin 11.9 g/dL (11.5-16.0)
[2024-11-15 16:29] VITALS: BP 124/77
--- NOTE | 2024-11-15 17:59 | NUR ---
SHIFT SUMMARY PT AOX4, INDEPENDENT IN THE ROOM. MEDICATED FOR PAIN AND NAUSEA PER THE EMAR. LABILE IN MOOD, TEARFUL AT TIMES. UPPER AND LOWER SCOPE SCHEDULED FOR TOMORROW. PT IS AWARE. REMAINS ON CLEAR LIQUIDS NOW. CALL LIGHT WITHIN RESPOSITIONS SELF IN BED. CALL LIGHT WITHIN REACH, BED LOCKED AND IN THE LOWEST POSITION. WILL REPORT TO ONCOMING NURSE.
[2024-11-15 19:48] VITALS: BP 108/59
[2024-11-16] VITALS (10 sets, daily range): BP systolic 90–137; BP diastolic 48–76
--- NOTE | 2024-11-16 05:27 | NUR ---
SHIFT SUMMARY PATIENT IS ALERT AND ORIENTED. PATIENT HAS HAD NO ACUTE EVENTS THIS SHIFT. VITAL SIGNS REVIEWED. PATIENT HAS COMPLAINED OF PAIN THIS SHIFT AND MEDICATED PER EMAR. PATIENT HAS NO COMPLAINTS OF SOB, NAUSEA, OR VOMITTING THIS SHIFT. PATIENT HAS HAD WATER AND ICE CHIPS SINCE 2300 ORDERED FOR SCOPE LATER IN THE EVENING. BED IN LOCKED AND LOWEST POSITION. CALL LIGHT IN PLACE.
[2024-11-16] MEDS ORDERED: Omeprazole 20 MG CapCR PO SCH (06:00)
[2024-11-16 06:18] LABS: Hematocrit 36.1 % (33.0-51.0); Hemoglobin 12.2 g/dL (11.5-16.0); Mean Corpuscular HGB 30.2 pg (26.0-34.0); Mean Corpuscular HGB Conc 33.8 g/dL (31.5-36.5); Mean Corpuscular Volume 89 fL (80-100); Mean Platelet Volume 11.2 fL (9.1-12.4); Platelet Count 195 K/mm3 (150-400); RDW Coefficient Variation 13.3 % (11.7-14.2); RDW Standard Deviation 43.5 fL (35.1-46.3); Red Blood Cell Count 4.04 M/mm3 (3.80-5.20); White Blood Cell Count 6.77 K/mm3 (4.00-11.30)
[2024-11-16 07:00] LABS: Bun/Creatinine Ratio 17.3 (12.0-20.0); Calcium, Blood 9.2 mg/dL (8.5-10.1); Creatinine, Blood 0.58 mg/dL (0.40-1.00); Potassium, Blood 4.1 mmol/L (3.5-5.5)
[2024-11-16] MEDS ORDERED: Peg/Electrolytes 4,000 ML BTL PO ONE (09:00)
[2024-11-16] MEDS ORDERED: Ondansetron HCl 2 MG / ML 2ML Vial IV PRN (14:35)
[2024-11-16] MEDS ORDERED: Lactated Ringer's 1,000 ML IV SCH (16:00)
[2024-11-16] MEDS ORDERED: Benzocaine Oral Spray 0.5ML UD ONE (16:03)
[2024-11-16] MEDS ORDERED: propofoL 40 ML IV ONE (16:03)
[2024-11-16] MEDS ORDERED: Midazolam HCl 1MG / ML 2ML Vial ONE (16:03)
[2024-11-16] MEDS ORDERED: Ipratropium/Albuterol SulF 2.5-0.5MG/3 ML Amp INH ONE (16:50)
[2024-11-16] MEDS ORDERED: Ipratropium/Albuterol SulF 2.5-0.5MG/3 ML Amp ONE (16:51)
[2024-11-16] MEDS ORDERED: FentaNYL Citrate 50 MCG/ML 2 ML Injection ONE (17:30)
--- NOTE | 2024-11-16 18:20 | NUR ---
11/16/24 9030 Mague Mejía CONFIRMED AND REVIEWED H&P, MEDCICATIONS, ALLERGIES, MEDICAL HISTORY, RESPIRATORY HISTORY, VITAL SIGNS, 3-LEAD EKG, CONSENTS, AND PHYSICIAN ORDERS. PATIENT CONFIRMS NPO STATUS AND AGREES WITH SCHEDULED PROCEDURE. MONITOR INTACT WITH CONTINUOUS PULSE OXIMETRY, CAPNOGRAPHY, 3-LEAD EKG, INTERMITTENT BP. SUPPLEMENTAL O2 TO BE TITRATED THROUGHOUT PROCEDURE TO MAINTAIN O2 SATURATION ABOVE 90%. PATIENT DETERMINED TO BE ASA APPROPRIATE FOR PROPOFOL SEDATION PRIOR TO START OF PROCEDURE BY .MALLAMPATI CLASS 2 AIRWAY: COMPLETE VISUALIZATION OF THE UVULA.
[2024-11-16] MEDS ORDERED: propofoL 20 ML IV ONE ×2 (18:35→18:55)
--- NOTE | 2024-11-16 18:40 | NUR ---
PT WENT TO DAY SURG FOR UPPER AND LOWER SCOPE- DAY ACTIVITY LEADER CALLED THE PT HAD A C/O A TERRIBLE HEADACHE. PT STATES THE TORADOL SHE RECIEVED ONE TIME YESTERDAY REALLY HELPED AND REQUESTED AN ADDITIONAL DOSE OF THAT. CALLED DR DAY AND RECIEVED AN ORDER FOR A OT DOSE OF TORADOL IF THE PT DOES NOT HAVE ANY BLEEDING ULCERS FOUND IN HER SCOPE.
[2024-11-16] MEDS ORDERED: Ketorolac Tromethamine 15mg Vial IV PRN (18:45)
--- NOTE | 2024-11-16 18:48 | NUR ---
SHIFT SUMMARY- PT COMPLETED MOST OF THE BOWEL PREP. DR ROSALVA SHE WAS UNABLE TO COMPLETE IT ALL. STOOL CLEAR YELLOW WITH A SMALL AMOUNT OF SEDIMENT. PT IS CURRENTLY IN THE PROCEDURE. SHE C/O HEADACHE, CALLED DR DAY AND RECIEVED A OT ORDER FOR 15MG IV TORADOL PRN FOR HEADACHE. PER DR DAY PT CAN ONLY RECIEVE THIS DOSE IF SHE DOES NOT HAVE BLEEDING ULCERS FOUND ON HER SCOPE. WILL PASS ON IN REPORT TO NIGHT RN.
[2024-11-17] MEDS ORDERED: Ketorolac Tromethamine 15mg Vial IV PRN (01:10)
--- NOTE | 2024-11-17 04:28 | NUR ---
CHARTING FOR 11/16/241925 PT ARRIVED BACK FROM SURGERY ON 11/16/24 AT 192. MD CAME IN TO SEE THE PT AND STATED THAT THE COLONOSCOPY AND EGD CAME OUT NORMAL WITH NO BLEEDING SEEN. HE STATED THAT HE TOOK SOME BIOPSIES OF THE AREA. PT C/O HEADACHE WHEN SHE ARRIVED BACK AND WAS GIVEN TORADOL WITH SOME HEADACHE RELIEF.
[2024-11-17 04:29] VITALS: BP 102/58
--- NOTE | 2024-11-17 05:32 | NUR ---
SHIFT SUMMARY PT HAD A COLONOSCOPY AND A EGD THIS AFTERNOON AND ARRIVED BACK AT 1926. STATED THAT THE TESTS CAME BACK NORMAL WITH NO BLEED AND THEY DID SOME BIOPSIES. SHES ALERT ORIENTED X 4 ABLE TO VERBALIZE NEEDS GETS UP AD SARY TO THE BATHROOM. C/O HEADACHE ORDER RECEIVED FOR TORADOL AND IT WAS GIVEN WITH GOOD RELIEF. SHE ALSO C/O NAUSEA MEDICATED WITH ZOFRAN WITH GOOD RELIEF. REMAINS ON TELEMETRY AT NSR AT A RATE OF 86. VSS ON RA SATTING AT 95%. SHE DID TAKE A BACLOFEN FOR SPASMS LAST NIGHT. NO C/O ABD PAIN THIS SHIFT RESTING IN BED AT THIS TIME WITH CALL LIGHT IN REACH
[2024-11-17 05:57] LABS: BASOPHILS ABSOLUTE AUTO 0.02 K/mm3 (0.00-0.23); BASOPHILS PERCENT AUTO 0 % (0-2); EOSINOPHILS PERCENT AUTO 0 % (0-6); Hematocrit 36.3 % (33.0-51.0); Hemoglobin 11.9 g/dL (11.5-16.0); IMMATURE GRAN ABSOLUTE AUTO 0.03 K/mm3 (0.00-0.10); IMMATURE GRAN PERCENT AUTO 0 % (0-1); LYMPHOCYTES ABSOLUTE AUTO 2.24 K/mm3 (0.84-5.20); LYMPHOCYTES PERCENT AUTO 21 % (21-46); MONOCYTES ABSOLUTE AUTO 0.52 K/mm3 (0.16-1.47); MONOCYTES PERCENT AUTO 5 % (4-13); Mean Corpuscular HGB 29.5 pg (26.0-34.0); Mean Corpuscular HGB Conc 32.8 g/dL (31.5-36.5); Mean Corpuscular Volume 90 fL (80-100); Mean Platelet Volume 11.2 fL (9.1-12.4); NEUTROPHILS ABSOLUTE AUTO 8.12 K/mm3 (1.96-9.15); NEUTROPHILS PERCENT AUTO 74 % (41-73); Platelet Count 180 K/mm3 (150-400); RDW Coefficient Variation 13.4 % (11.7-14.2); RDW Standard Deviation 44.5 fL (35.1-46.3); Red Blood Cell Count 4.04 M/mm3 (3.80-5.20); White Blood Cell Count 10.93 K/mm3 (4.00-11.30)
[2024-11-17 06:21] LABS: Bun/Creatinine Ratio 21.1 (12.0-20.0); Calcium, Blood 9.3 mg/dL (8.5-10.1); Creatinine, Blood 0.62 mg/dL (0.40-1.00); Potassium, Blood 3.7 mmol/L (3.5-5.5)
[2024-11-17 07:51] VITALS: BP 104/63
[2024-11-17] MEDS ORDERED: BACL10 PO (12:10)
[2024-11-17] MEDS ORDERED: Flonase 0.05% N16 GM (12:13)
[2024-11-17] MEDS ORDERED: Nicoderm Cq1 EACH TOP (12:13)
[2024-11-17] MEDS ORDERED: VISBIOME 112.51 EACH PO (12:14)
[2024-11-17] MEDS ORDERED: ONDA4ODT MM (12:14)
--- NOTE | 2024-11-17 13:59 | NUR ---
DISCHARGE NOTE- PT WAS GIVEN VERBAL AND WRITTEN DISCHARGE INSTRUCTIONS AND ACKNOWLEDGED UNDERSTANDING OF THEM. IV AND TELE DC'D PRIOR TO DISCHARGE. NO S&S OF DISTRESS NOTED AT THE TIME OF DISCHARGE. PT WAS ESCORTED OUT VIA WC BY THE AUTO DETAILER.
== END 2024-11-17 13:57 | disposition home or self-care (01) | DRG 392 ==
LOC: ER 13:43 → MEDS 19:57 → ERHOLD 19:57 → MEDS 21:25
PROVIDERS: Internal Medicine Gastroenterology; Registered Nurse; Student in an Organized Health Care Education/Training Program; ADMIT Internal Medicine
PROC: 0DJD8ZZ Inspection of Lower Intestinal Tract, Via Natural or Artificial Opening Endoscopic (ICD-10-PCS; 2024-11-16)
PROC: 0DB98ZX Excision of Duodenum, Via Natural or Artificial Opening Endoscopic, Diagnostic (ICD-10-PCS; principal; 2024-11-16 17:00)
PROC: 0DB78ZX Excision of Stomach, Pylorus, Via Natural or Artificial Opening Endoscopic, Diagnostic (ICD-10-PCS; 2024-11-16 17:00)
DX: K52.9 Noninfective gastroenteritis and colitis, unspecified (principal); K64.4 Residual hemorrhoidal skin tags; I10 Essential (primary) hypertension; K21.9 Gastro-esophageal reflux disease without esophagitis; K57.30 Diverticulosis of large intestine without perforation or abscess without bleeding; I25.10 Atherosclerotic heart disease of native coronary artery without angina pectoris; F41.9 Anxiety disorder, unspecified; F32.A Depression, unspecified; F25.9 Schizoaffective disorder, unspecified; G35 Multiple sclerosis; E87.6 Hypokalemia; M06.9 Rheumatoid arthritis, unspecified; F17.210 Nicotine dependence, cigarettes, uncomplicated; Z86.73 Personal history of transient ischemic attack (TIA), and cerebral infarction without residual deficits; Z90.710 Acquired absence of both cervix and uterus; Z90.49 Acquired absence of other specified parts of digestive tract; Z98.890 Other specified postprocedural states; Z88.2 Allergy status to sulfonamides; Z91.040 Latex allergy status; Z88.0 Allergy status to penicillin; Z88.8 Allergy status to other drugs, medicaments and biological substances; Z88.5 Allergy status to narcotic agent; Z85.038 Personal history of other malignant neoplasm of large intestine
CPT/HCPCS: 0241U; 36415; 74177; 80048; 80053; 81001; 83605; 83690; 83880; 85014; 85018; 85025; 85027; 85651; 86140; 87077; 87086; 87186; 93005; 93010; 94640; 94664; 94760; 96361; 96374-59; 96375; 99285-25; A9270; J1885; J2250; J2405; J2704; J2919; J3010; J3480; J7030; J7050; J7120; Q9967